=== PATIENT | female | born 1995 | race Caucasian/White ===

== ENCOUNTER 2024-04-08 15:46 | Emergency (ER) | payer BC, SELFPAY ==
[2024-04-08] VITALS (10 sets, daily range): BP systolic 116–119; BP diastolic 64; PULSE 72–88; RESP 24; TEMP 38.3–38.7; O2SAT 87–95; BMI 35.4
--- OUTSIDE RECORDS SUMMARY | 2024-04-08 15:49 | XMS_ITS | Encounter Summary ---
Author Organization [facility] Address [address] [address] Phone Care Team Providers Care Client Resolution Specialist Name Role Phone Bang Gibson MD Primary Care Provider [phone] Reason for Visit * Reason Onset Date Comments Referral 02/20/2024 [facility] Encounter Details Date Type Department Care Team ([facility] Contact Info) Description 02/20/2024 Telephone [facility] - [facility] [place] 2023 [place] [address] Nusrat Kaplan Referral ([facility]) Social History Tobacco Use Types Packs/Day Years Used Date Smoking Tobacco: Never Smokeless Tobacco: Never Alcohol Use Standard Drinks/Week Comments Yes 0 (1 standard drink = 0.6 oz pur e alcohol) Rare [facility] Utilities Answer Date Recorded In the past 12 months has [facility] [employer], gas, oil, or water eelusion threatened to shut off services in your home? No 08/19/2023 Humiliation, Afraid, Rape, and Kick questionnair e Answer Date Recorded Within the last year, have y ou been afraid of your partner or ex-partner? No 12/13/2021 Within the last year, have y ou been humiliated or emotionally abused in other ways by your partner or ex-partner? No Within the last year, have y ou been kicked, hit, slapped, or otherwise physically hurt by your partner or ex-partner? No 12/13/2021 Within the last year, have y ou been raped or forced to have any kind of sexual activity by your partner or ex-partner? No 12/13/2021 Social Connection and Isolation Panel [NHANES] A nswer Date Recorded In a typical week, how many times do you talk on the phone with family, friends, or neighbors? Twice a week 12/13/2021 How often do you get together with friends or re latives? Once a week 12/13/2021 How often do you attend spiritism or restorationist serv ices? Never 12/13/2021 Do you belong to any clubs o r organizations such as spiritism groups, unions, fraternal or athletic groups, or school groups? No 12/13/2021 How often do you attend meet ings of the clubs or organizations you belong to? Never 12/13/2021 Are you , , di vorced, , never , or living with a partner? 12/13/2021 AUDIT-C Answer Date Recorded Q1: How often do you have a drink containing alc ohol? Monthly or less 12/13/2021 Q2: How many drinks containi ng alcohol do you have on a typical day when you are drinking? 1 or 2 12/13/2021 Q3: How often do you have si x or more drinks on one occasion? Never 12/13/2021 Overall Financial Resource Strain (CARDIA) Answe r Date Recorded How hard is it for you to pa y for the very basics like food, housing, medical care, and heating? Not very hard 03/28/2023 PHQ-2 Answer Date Recorded PHQ-2 Total 0 02/17/2024 [facility] - Occupational Stress Questionnaire Answer Date Recorded Do you feel stress - tense, restless, nervous, or anxious, or unable to sleep at night because your mind is troubled all the time - these days? Very much 12/13/2021 Exercise Vital Sign Answer Date Recorde d On average, how many days pe r week do you engage in moderate to strenuous exercise (like a brisk walk)? 3 days 12/13/2021 On average, how many minutes do you engage in exercise at this level? 60 min 12/13/2021 Hunger Vital Sign Answer Date Recorded Within the past 12 months, y ou worried that your food would run out before you got the money to buy more. Never true 08/19/19 24 Within the past 12 months, t he food you bought just didn't last and you didn't have money to get more. Never true 08/19/2023 PRAPARE - Transportation Answer Date Re corded In the past 12 months, has l ack of transportation kept you from medical appointments or from getting medications? No 08/05 In the past 12 months, has l ack of transportation kept you from meetings, work, or from getting things needed for daily living? No 08/19/2023 Housing Stability Vital Sign Answer Lauro e Recorded In the last 12 months, was t here a time when you were not able to pay the mortgage or rent on time? Yes 08/19/2023 In the past 12 months, how m any times have you moved where you were living? 0 08/19/2023 At any time in the past 12 m onths, were you homeless or living in a jail (including now)? No 08/19/2023 EH IP Custom Utilities Answer Date Elijah rded Retired - How hard is it for you to pay for utilities like heat, water, and electricity? Not very hard 05/16/2023 EH IP Housing Domain Answer Date Record ed Retired - What is your livin g situation today? I have a steady place to live 05/16/2023 EH IP Custom Utilities ([employer]) Answer Date Recorded How hard is it for you to pa y for the very basics like food, housing, medical care, and heating? 4 03/28/2023 EH IP Custom IPV Answer Date Recorded Do you feel UNSAFE in any of your personal relationships with your family members or any other acquaintances? No 2022 Comments No Sex and Gender Information Value Date Recorded Sex Assigned at Not on file Legal Sex Female 12:25 PM CDT Gender Identity Not on file Sexual Orientation Not on file documented as of this encounter Functional Status * Patient's Vision Adequate to Safely Complete Daily Activities Answer Date of Assessment Author Yes 07/06/2022 11:45 PM CDT Ernesto Ramos, RN * Patient's Memory Adequate to Safely Complete Daily Activities Answer Date of Assessment Author Yes 07/06/2022 11:45 PM CDT Ernesto Ramos, RN documented as of this encounter Mental Status * Patient's Judgment Adequate to Safely Complete Daily Activities Answer Entry Date Author Yes 07/06/2022 11:45 PM CDT Ernesto Ramos RN documented in this encounter Miscellaneous Notes * Telephone Encounter - Shakeel Kaplanine Doug - 02/23/2024 3:21 PM CST Referral ID [id number] Future appointment on 04-03-24 w/Dr. Eren Bustillo ITAL CLINIC ASSISTANT * Telephone Encounter - Shakeel Kaplanine Doug - 02/20/2024 10:49 AM CST Referral received and faxed to [facility]. Faxed referral, demographics, OVS notes, financial summary, problem list and current medications. Patient will receive a call to schedule appointment from that facility once patient's chart information has been received. For questions, please have patient call [phone] to speak with scheduling office. Patient should be sure to contact their insurance company to verify benefit coverage for this visitprior to being seen for this referral. If there are questions or concerns, please contact the appropriate Referral Center; [facility]: [phone] [place]: [phone] [place]: [phone] Thank you! ITAL CLINIC ASSISTANT documented in this encounter Plan of Treatment Upcoming Encounters Date Type Department Care Team (Late st Contact Info) Description 04/11/2024 4:30 PM HOSPITAL CLINIC ASSISTANT Appointment [facility] Radiology [address] [id number] Licha Acuna RN, [address] [place], [place] [address] documented as of this encounter Visit Diagnoses Not on filedocumented in this encounter Care Teams Client Resolution Specialist Relationship Specialty [place] [address] [facility] [address] [place] [address] PCP - General Family Medicine 03/28/23 documented as of this encounter
--- OUTSIDE RECORDS SUMMARY | 2024-04-08 15:49 | XMS_ITS | Encounter Summary ---
Author Organization [facility] Address [address] [address] Phone Care Team Providers Care Mortarman Name Role Phone Bang Gibson MD Primary Care Provider [phone] Reason for Visit * Reason Comments Hearing Loss Signs Of Infection * Office Visit (Routine) - New Request Specialty Diagnoses / Procedures Referred By Dariana jefferson Referred To Contact Audiology Diagnoses Non-recurrent acute suppurative otitis media of right ear without spontaneous rupture [place] [address] [address] Phone: tel: fax: Referral ID Status Reason Start Date Expiration Date V isits Requested Visits Authorized [id number] New Request 02/24/2024 02/23/2025 1 1 Encounter Details Date Type Department Care Team ([facility] Contact Info) Description 03/21/2024 8:00 AM DIRECTOR NICU Office Visit [facility] 2023 [place], [place] [id number] Komal Liriano, AuD [address] [id number] Conductive hearing loss of right ear with unrestricted hearing of left ear (Primary Dx) Social History Tobacco Use Types Packs/Day Years Used Date Smoking Tobacco: Never Smokeless Tobacco: Never Alcohol Use Standard Drinks/Week Comments Yes 0 (1 standard drink = 0.6 oz pur e alcohol) Rare [facility] Utilities Answer Date Recorded In the past 12 months has th e electric, gas, oil, or water company threatened to shut off services in your [...] week 12/13/2021 How often do you attend zoroastrian or spiritism serv ices? Never 12/13/2021 Do you belong to any clubs o r organizations such as zoroastrian groups, unions, fraternal or athletic groups, or [...] Answer Date Recorded PHQ-2 Total 0 02/17/2024 [facility]ational Stress Questionnaire Answer Date Recorded [...] were you homeless or living in a care home (including now)? No 08/19/2023 EH IP Custom [...] housing, medical care, and heating? 4 03/28/2023 IP Custom IPV Answer Date Recorded Do [...] 07/06/2022 11:45 PM CDT Ernesto Ramos RN * Patient's Memory Adequate to Safely Complete Daily Activities Answer Date of Assessment Author Yes 07/06/2022 11:45 PM CDT Ernesto Ramos RN documented as of this encounter Mental Status * Patient's Judgment Adequate to Safely Complete Daily Activities Answer Entry Date Author Yes 07/06/2022 11:45 PM CDT Ernesto Ramos RN documented in this encounter Progress Notes * Komal Liriano, Александр - 03/21/2024 8:00 AM CST Gerri Hayward is a(n) 28 year old referred by [facility]. PCP: Bang Gibson MD ENT appt 03/21/2024 Chief Complaint Patient presents with Hearing Loss Signs Of Infection Medical History The purpose of today's appointment was to evaluate Gerri Hayward's current hearing sensitivity. Gerri Hayward reports the following: Pt states having a right sided ear infection for about 1+ mos now. Pt states off/on pain and drainage. Pt states the drainage has been red at times. No dizziness or ringing. Pt states right ear is quieter that the left ear now. Pt states no infection hx. Audiologic Results: Otoscopy revealed both external auditory canals reveal generally clear canal(s) with visable TM(s). Right eardrum was pink and tender looking. Left eardrum was clear and transparent. Tympanometry Type A which is consistent with normal middle ear pressure, volume and admittance in both ears. Today's hearing evaluation was conducted using conventional audiometry(air/bone/speech threshold/word recognition) under insert earphones with good reliability. Hearing threshold levels revealed a slight CHL rising to normal in the right ear and normal hearing in the left ear. Speech hospital receptionist thresholds(SRT's) were obtained at 35dB in the right ear and 15dB in the left ear. When speech was presented at a comfortable level(word recognition), speech was understandable 100% of the time in the right ear and 100% of the time in the left ear. Impressions: Gerri Hayward has conductive hearing loss in the right ear and normal hearing in the left ear. Results from today's hearing test and areas where pt would be struggling was discussed. Hearing Aid Consultation: No Recommendations: Given today's results it is recommended that Gerri Hayward see Otolaryngology for further medical evaluation. ENT appointment has been previously scheduled. Pt was informed if any changes with hearing acuity or ear issues are noted to let us know and a repeat audiogram will be conducted. The results and recommendations of today's testing were discussed. It was a pleasure meeting and working with Gerri Hayward today. Thank you for allowing us to participate in this patient's care. Time: 25 minutes. Pt given a copy of Audiogram: Yes CTOR NICU documented in this encounter Plan of Treatment Upcoming Encounters Date Type Department Care Team (Late st Contact Info) Description 04/11/2024 4:30 PM DIRECTOR NICU Appointment [facility] Radiology [address] [id number] Licha Acuna RN, ACTUARIAL SCIENCE PROFESSOR [address] [place], [place] [address] documented as of this encounter Procedures Procedure Name Priority Date/Time Associated Diagnosis Comments TYMPANOMETRY Routine 03/21/2024 12:00 AM DIRECTOR NICU Conductive hearing loss of right ear with unrestricted hearing of left ear COMPREHENSIVE HEARING TEST Routine 03/21/2024 12:00 AM DIRECTOR NICU Conductive hearing loss of right ear with unrestricted hearing of left ear documented in this encounter Results * COMPREHENSIVE HEARING TEST (03/21/2024 12:00 AM DIRECTOR NICU) 03/21/2024 [place] [facility] PROCEDURES Final Re sult * TYMPANOMETRY (03/21/2024 12:00 AM DIRECTOR NICU) 03/21/2024 [place] [facility] EC PROCEDURES Final Re sult documented in this encounter Visit Diagnoses Diagnosis Conductive hearing loss of right ear with unrestricted hearing of left ear- Primary documented in this encounter Care Teams Mortarman Relationship Specialty [place] [address] [address] PCP - General Family Medicine 03/28/23 documented as of this encounter
--- OUTSIDE RECORDS SUMMARY | 2024-04-08 15:49 | XMS_ITS | Encounter Summary ---
Author Organization [facility] Address [address] [address] Phone Care Team Providers Care Electric Needle Specialist Name Role Phone Bang Gibson MD Primary Care Provider [phone] Encounter Details Date Type Department Care Team (Latest Contact Info) Description 03/21/2024 Travel Social History Tobacco Use Types Packs/Day Years Used Date Smoking Tobacco: Never Smokeless Tobacco: Never Alcohol Use Standard Drinks/Week Comments Yes 0 (1 standard drink = 0.6 oz pur e alcohol) Rare [facility] Utilities Answer Date Recorded In the past 12 months has e electric, gas, oil, or water company [...] Answer Date Recorded PHQ-2 Total 0 02/17/2024 [facility] Occupat ional Health - Occupational Stress [...] any time in the past 12 m ont, were you homeless or living in a long-term (including now)? No 08/19/2023 EH IP Custom [...] Date Author Yes 07/06/2022 11:45 PM CDT Ernetso Ramos, RN documented in this encounter Plan of Treatment Upcoming Encounters Date Type Department Care Team (Late st Contact Info) Description 04/11/2024 4:30 PM PRECISION LENS GENERATOR Appointment [facility] Radiology [place] [address] [place] [id number] Licha Acuna, RN, [address] [place] [address] documented as of this encounter Visit Diagnoses Not on filedocumented in this encounter Care Teams Electric Needle Specialist Relationship Specialty [place] [address] [address] PCP - General Family Medicine 03/28/23 documented as of this encounter
--- OUTSIDE RECORDS SUMMARY | 2024-04-08 15:49 | XMS_ITS | Clinical Summary ---
Author Organization [facility] Address [address] [place] [address]. [place] [address] Care Team Providers Care Second Rigger Name Role Phone No Ref-Primary, Physician Primary Care Provider Allergies No known active allergies Medications CITALOPRAM HYDROBROMIDE PO Acti ve trimethoprim-polymy linda b (POLYTRIM) 88407-3.1 UNIT/ML-% ophthalmic solutionIndications :Acute bacterial conjunctivitis of left eye Apply 1 drop to affected eye(s) 4 times daily for 7 days. 5 mL Active Immunizations Name Administration Dates Next Due TDAP Vaccine (Adacel) 11/24/2017 Family History Medical History Relation Comments Coronary Artery Disease Early Onset Father Diabetes Maternal Grandfather Hypertension Maternal Grandfather Relation Status Comments Father Maternal Grandfather Social History Tobacco Use Types Packs/Day Years Used Date Smoking Tobacco: Never Smokeless Tobacco: Never Tobacco Cessation:Counseling Given: Not Answered Adolescent Education Answer Date Record ed Getting School Help Needed Not on file 11/26 Comments No Sex and Gender Information Value Date Recorded Sex Assigned at Not on file Legal Sex Female 4:11 PM CDT Gender Identity Not on file Sexual Orientation Not on file Last Filed Vital Signs Vital Sign Reading Time Taken Comments Blood Pressure 135/84 09/16/2022 4:53 PM CDT Pulse 100 09/16/2022 4:53 PM CDT Temperature 37.1 C (98.8 F) 09/16/2022 4:53 PM CDT Respiratory Rate - - Oxygen Saturation 100% 09/16/2022 4:53 PM CDT Inhaled Oxygen Concentration - - Weight 95.3 kg (210 lb) 09/16/2022 4:53 PM CDT Height - - Body Mass Index - - Plan of Treatment Health Maintenance Due Date Last Done Comments ADVANCE CARE PLANNING 1995 ANNUAL REVIEW OF HM ORDERS 1995 YEARLY PREVENTIVE VISIT 12/13/1998 HIV SCREENING 12/13/2010 HEPATITIS C SCREENING 12/13/2013 PAP 12/13/2016 COVID-19 Vaccine ( season) 2023 06/19/2020, 05/21/2020 INFLUENZA VACCINE (#1) 2023 PHQ-2 (once per calendar year) 2024 DTAP/TDAP/TD IMMUNIZATION (7 - Td or Tdap) 11/25/2027 11/24/2017, 06/27/2008, 11/21/2001, Additional history exists RSV VACCINE (1 - 1-dose 75+ series) 12/13/2070 HEPATITIS B IMMUNIZATION Completed 997, 04/16/1996, 02/13/1996 HPV IMMUNIZATION Aged Out No longer e ligible based on patient's age to complete this topic MENINGITIS IMMUNIZATION Aged Out No l onger eligible based on patient's age to complete this topic Pneumococcal Vaccine: Pediatrics (0 to 5 Years) and At-Risk Patients (6 to 49 Years) Aged Out No longer eligible based on patient's age to complete this topic RSV MONOCLONAL ANTIBODY Aged Out No l onger eligible based on patient's age to complete this topic Insurance [employer] Care Teams Second Rigger Relationship Specialty Start Date End Date No Ref-Primary, Physician PCP - General 11/24/17
--- OUTSIDE RECORDS SUMMARY | 2024-04-08 15:49 | XMS_ITS | Referral Summary ---
Author Organization [facility] Address [address] [place] [address]. [place] [address] Care Team Providers Care Health Promoter Name Role Phone No Ref-Primary, Physician Primary Care Provider Allergies No known active allergies Medications CITALOPRAM HYDROBROMIDE PO Acti ve trimethoprim-polymy linda b (POLYTRIM) 78461-6.1 UNIT/ML-% ophthalmic solutionIndications :Acute bacterial conjunctivitis of left eye Apply 1 drop to affected eye(s) 4 times daily for 7 days. 5 mL Active Immunizations Name Administration Dates Next Due TDAP Vaccine (Adacel) 11/24/2017 Social History Tobacco Use Types Packs/Day Years [...] Mass Index - - Plan of Treatment Not on file Insurance [employer] Care Teams Health Promoter Relationship Specialty Start Date End Date No Ref-Primary, Physician PCP - General 11/24/17
--- OUTSIDE RECORDS SUMMARY | 2024-04-08 15:49 | XMS_ITS | Clinical Summary ---
Author Organization [facility] Address [address] [address] Phone Care Team Providers Care Boat Camp Operator Name Role Phone Bang Gibson MD Primary Care Provider [phone] Allergies Active Allergy Reactions Criticality Noted Date Comments Bupropion Unknown Medium 04/02/2020 [place] numb and increased suicide ideations Grapefruit Concentrate Anaphylaxis High 2021 Medications drospirenone-eth inyl estradiol (Erin) 3-0.02 MG oral tablet Take 1 Tablet by mouth one time a day. Patient will take continuously, skipping placebo pills. Will need 4 pill packs for a 3 month supply. 112 Tablet 4 2 Active cyclobenzaprine (Flexeril) 10 MG tablet TAKE 1 TABLET BY MOUTH THREE TIMES A DAY NEEDEDFOR MUSCLE SPASMS. 90 Tablet 2 4 Active propranolol (Inderal) 10 MG tabletIndication s:Anxiety Take 2 Tablets by mouth three times a day. 360 Tablet 1 05/24/2023 10:31 AM CDT 4 Active propranolol LA (Inderal LA) 60 MG 24 hour capsuleIndicatio ns:Anxiety Take 1 Capsule by mouth one time a day. Do not crush. 90 Capsule 2 4 Active gabapentin (Neurontin) 300 MG capsuleIndicatio ns:Chronic neck pain Take 1 Capsule by mouth three times a day. 180 Capsule 2 4 Active citalopram (CeleXA) 40 MG tabletIndication s:Anxiety Take 1 Tablet by mouth at bedtime. 90 Tablet 1 4 Active ciprofloxacin-de xAMETHasone 0.3-0.1 % otic suspensionIndica tions:Non-recurr ent acute suppurative otitis media of right ear without spontaneous rupture of tympanic membrane Place 4 Drops into the right ear two times a day. Shake suspension well immediately before using. 7.5 mL 4 Active Active Problems Patient Care Coordination No te Formatting of this note migh t be different from the original. Cervical cancer screening: Pap NILM, HPV not done, cytology only due in 3 years (12/2024). Problem Noted Date Diagnosed Date Chronic neck pain with history of cervical spina l surgery 11/15/2022 Menorrhagia with irregular cycle 2021 Chronic neck pain 07/08/2020 Overview (2021): Every since her procedure in 2005. Fairly constant, dull ache. Sometimes has sharp pains down her UE. Even things such as a yawn can set it off. Unsure a pattern to her flare ups. She will utilize a neck brace when flare ups happen. She has Flexeril and this will sometimes help. She will often rest until it improves. Assessment & Plan (2021 8:17 AM CDT): Continue with current management. Refilled Flexeril. Discussed future possible management such as OMT, physical therapy and/or changing muscle relaxer. Cervical radiculopathy 07/08/2020 Overview (2021): She will get this occasionally when she has flare ups. Assessment & Plan (2021 8:18 AM CDT): Currently not experiencing a flare up. Major depressive disorder, recurrent, mild 10/03 Overview (2021): Dated back to elementary school. Started receiving treatment around 18 years old. Has problems with sadness, anhedonia, lack of motivation. History of self injurious behavior, cutting and burning. No suicidal attempts but did have suicidal ideations without a plan. No current thoughts of suicide. Celexa seems to help with the self harm thoughts. Her other symptoms seem controlled when initially on the med but then needs to be increased to help symptoms. Currently struggling with things in her day to day routine. Does not currently see a therapist but is open to one. Previously had been on Wellbutrin, seemed to increase SI. She utilizes painting and drawing and likes to be around animals. 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 Assessment & Plan (2021 8:32 AM CDT): Increasing Celexa to 40 mg daily and referring to psychology for therapy services. Anxiety 10/02/2018 Overview (2021): Dated back to elementary school. Started receiving treatment around 18 years old. This will effect her ability to go out and complete tasks or hang out with friends. Tends to back out because she starts to panic. Assessment & Plan (2021 8:32 AM CDT): Increasing Celexa to 40 mg daily and referring to psychology for therapy services. Dysmenorrhea 10/02/2018 Overview (2021): She reports menarche at 10 to 11 years old. Since then her periods have been irregular. She states that the irregularity can be every 2 weeks to every 3 months. The cycle usually lasts 1 to 2 days but can extend up to 2 weeks of bleeding. She reports heavy bleeding and experiences clots. She will typically use super plus tampons and can use them as frequently as every 1-2 hours during her cycles. She also reports quite a bit of pain with them that affect her daily life. She was put on OCPs at one time but she reports this increase her depression and she discontinued them. She sometimes uses Excedrin Migraine with little effect. Her last menstrual period was 12/12/2021 and lasted for a day with heavy flow. Currently sexually active with a female partner. Assessment & Plan (2021 8:46 AM CDT): Lab work and possible ultrasound for further work-up. Trial ibuprofen 800 mg up to 3 times a day during her menstrual cycle. Follow-up in 2 weeks to go over labs. Considering possible referral to gynecology. 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 S/p removal and laminectomy 2006 Encounters Date Type Department Care Team Description 03/21/2024 8:00 AM LINE HAUL TRUCK DRIVER Office Visit [facility] [address] [place] [address] Komal Liriano AuD Conductive hearing loss of right ear with unrestricted hearing of left ear (Primary Dx) 03/21/2024 Travel 02/20/2024 Telephone [facility] PATIENT CARE CONTACT CENTER BREWSTER [address] [place], [place] [id number] Nusrat Kaplan Referral ([facility]NT) 02/17/2024 1:30 PM LINE HAUL TRUCK DRIVER Office Visit [facility] [address] [place] [address] Bang Gibson MD Non-recurrent acute suppurative otitis media of right ear without spontaneous rupture of tympanic membrane (Primary Dx) 02/17/2024 Travel from Last 3 Months Immunizations Name Administration Dates Next Due COVID-19 mRNA Vaccine (Moderna - 18+ Yrs) 2020,05/21/2020 DTP/HIB (Tetramune) 04/16/1996,02/13/1996 DTaP <7 years 04/11/1997,06/22/1996 Hepatitis B, Pediatric/adolescent 09/14/1996,12/1996,02/13/1996 IPV 11/21/2001 MMR 05/22/2008,11/21/2001,1996 OPV (Historic Use Only) 06/22/1996,04/16/1996, Rabies IM Fibroblast Culture (Rabavert) 11/11/19,10/26/2016,10/18/2016 TD >7yrs With Preservative 11/21/2001 Tdap (7 years and older) 11/24/2017,06/27/2008 Varicella (Varivax) 05/22/2008,08/14/1997 Social History Tobacco Use Types Packs/Day Years Used Date Smoking Tobacco: Never Smokeless Tobacco: Never Tobacco Cessation:Counseling Given: Not Answered Alcohol Use Standard Drinks/Week Comments Yes 0 (1 standard drink = 0.6 oz pur e alcohol) Rare [facility] Utilities Answer Date Recorded In the past 12 months has e [employer], gas, oil, or water [employer] threatened to shut off services in your [...] week 12/13/2021 How often do you attend sikhism or mu-ism serv ices? Never 12/13/2021 Do you belong to any clubs o r organizations such as sikhism groups, unions, fraternal or athletic groups, or [...] Answer Date Recorded PHQ-2 Total 0 02/17/2024 [employer] of Occupat ional Health - Occupational Stress [...] any time in the past 12 m [facility], were you homeless or living in a usp (including now)? No 08/19/2023 IP [employer] Utilities Answer Date Elijah rded Retired - How hard is it for you to pay for utilities like heat, water, and electricity? Not very hard 05/16/2023 IP Housing Domain Answer Date Record ed Retired - What is your samuel g situation today? I have a steady place to live 05/16/2023 IP Custom Utilities (Leg[employer]) Answer Date Recorded [...] on file Sexual Orientation Not on file Obstetrics History Para Term AB IAB SAB Ectopic Molar Multiple Living Live Births 0 0 0 0 0 0 0 0 0 0 0 0 Last Filed Vital Signs Vital Sign Reading Time Taken Comments Blood Pressure 123/78 02/17/2024 1:11 PM LINE HAUL TRUCK DRIVER Pulse 81 02/17/2024 1:11 PM LINE HAUL TRUCK DRIVER Temperature 36.8 C (98.2 F) 02/17/2024 1:11 PM LINE HAUL TRUCK DRIVER Respiratory Rate 14 08/19/2023 11:4 6 AM CDT Oxygen Saturation 99% 02/17/2024 1:11 PM LINE HAUL TRUCK DRIVER Inhaled Oxygen Concentration - - Weight 102.3 kg (225 lb 8.5 oz) 024 11:46 AM CDT Height 175.3 cm (5' 9) 08/19/2023 11:4 6 AM CDT Body Mass Index 33.31 08/19/2023 11:46 AM CDT Plan of Treatment Upcoming Encounters Date Type Department Care Team (Late st Contact Info) Description 04/11/2024 4:30 PM LINE HAUL TRUCK DRIVER [facility]oint[facility] [address] [address] [address] Licha Acuna, RN, THERMO PROCESSOR [facility] [address] [facility] [address] [place] [id number] Health Maintenance Due Date Last Done Comments COVID-19 Vaccine ( season) 2023 06/19/2020, 05/21/2020 Influenza Vaccine Seasonal (Standing Order) (#1) 2023 Cervical CA Screening (Pap) 01/06/2025 01/06/2022 TETANUS (Standing Order) 11/25/2027 018, 06/27/2008, 11/21/2001, Additional history exists Hepatitis B Vaccine (Standing Order) Completed 09/14/1996, 04/16/1996, 02/13/1996 PERTUSSIS (Standing Order) Completed 11/24, 06/27/2008, 04/11/1997, Additional history exists HPV Vaccine (Standing Order) Aged Out No longer eligible based on patient's age to complete this topic Pneumococcal/PCV20 Vaccine: Pediatrics (2-5 yrs) and At-Risk Patients (6-49 yrs) (Standing Order) Aged Out No longer eligible based on patient's age to complete this topic Procedures Procedure Name Priority Date/Time Associated Diagnosis Comments COMPREHENSIVE HEARING TEST Routine 03/21/2024 12:00 AM LINE HAUL TRUCK DRIVER Conductive hearing loss of right ear with unrestricted hearing of left ear TYMPANOMETRY Routine 03/21/2024 12:00 AM LINE HAUL TRUCK DRIVER Conductive hearing loss of right ear with unrestricted hearing of left ear PAP, LIQUID BASED Routine 01/06/2022 8:4 9 AM CDT Screening for malignant neoplasm of cervix from Last 3 Months or Most Recently Relevant to Health Maintenance Results * TYMPANOMETRY (03/21/2024 12:00 AM LINE HAUL TRUCK DRIVER) 03/21/2024 Komal Liriano AuD EC PROCEDURES Final Re sult * COMPREHENSIVE HEARING TEST (03/21/2024 12:00 AM LINE HAUL TRUCK DRIVER) 03/21/2024 Komal Liriano AuD EC PROCEDURES Final Re sult * PAP, LIQUID BASED (01/06/2022 8:49 AM CDT) Case Report Gynecologic Cytology Report Case: [id number] Authorizing Provider: Tabby Scott DO Collected: 01/06/2022 0849 Ordering Location: [facility] Received: 01/06/2022 0903 Obstetrics/Gyneco logy First Screen: Ernesto Hsu Specimen: LIQUID-BASED PAP, Cervix 01/07/2022 8:27 AM CDT [facility] Gynecologic Cytology Interpretation , SurePath Collection Negative for Intraepithelial Lesion or Malignancy. 01/07/2022 8:27 AM CDT [facility] Other Findings Marked inflammation present. 01/07/2022 8:27 AM CDT [facility] Specimen Adequacy Satisfactory for evaluation, endocervical/trans formation zone component is present. 01/07/2022 8:27 AM CDT [facility] Pap Disclaimer Note: The Pap test is a screening procedure and is not, by itself, diagnostic. False negatives and positives do occur. Correlation with clinical findings, history and a program of regular examinations including Pap tests is warranted to help detect cancers and precursor lesions of the female genital tract. 01/07/2022 8:27 AM CDT [facility] [place] VAGINAL CERVIX / Unknown Non-blood collection / Unknown 01/06/2022 8:49 AM CDT 01/06/2022 9:03 AM CDT Tabby Scott DO EC PATHOLOGY ORDERABLES F inal Result [facility] [address] from Last 3 Months or Most Recently Relevant to Health Maintenance [facility] Care Teams Boat Camp Operator Relationship Specialty [place] [address] [address] PCP - General Family Medicine 03/28/23
--- OUTSIDE RECORDS SUMMARY | 2024-04-08 15:49 | XMS_ITS | Clinical Summary ---
Author Organization [facility] Address [place], [place] [address] Care Team Providers Care Diagnostic Cardiac Sonographer Name Role Phone Bang Gibson Primary Care Provider Unavaila ble Allergies Active Allergy Reactions Criticality Noted Date Comments Grapefruit Anaphylaxis High 2021 Bupropion Other - Describe In Comment Field Medium 04/02/2020 [place] numb and increased suicide ideations Medications cyclobenzaprine (FLEXERIL) 10 mg tabletIndications :Chronic neck pain,Cervical radiculopathy Take 1 Tablet (10 mg) by mouth 3 times daily if needed for Muscle Spasm. 30 tablet. 1 2 Active gabapentin (NEURONTIN) 300 mg capsule Take 300 mg by mouth three times daily. Active citalopram (CELEXA) 40 mg tablet Take 1 Tablet by mouth at bedtime. 4 Active propranolol ER (INDERAL LA) 60 mg Cs24 Sustained-Release capsule Take 60 mg by mouth once daily. 4 Active methylPREDNISolon e (MEDROL DOSEPAK) 4 mg tabletIndications :Neuritis Take by mouth as instructed per packaging. 21 Tablet 4 Active lidocaine-priloca ine 2.5%-2.5% creamIndications: Neuritis Apply 5 grams to affected area TID PRN 30 g 4 Active diclofenac topical (VOLTAREN) 1 % gelIndications:Ne uritis Apply 4 g topically to affected area(s) four times daily. 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 Overview (12/21/2006): on C-2 s/p laminectomy 2006 Encounters Date Type Department Care Team Description 02/16/2024 9:20 AM GLOBAL SALES EXECUTIVE Office Visit [facility] [address] [place] [id number] Calvin Howard MD Follow Up (procedure from 01/26 cervical RFA (B) C3.C4,C5 discuss pain.) 02/16/2024 Travel 01/27/2024 2:37 PM GLOBAL SALES EXECUTIVE Anesthesia Event [facility] [address] [place] [address] Maryse Harry CRNA 01/27/2024 2:30 PM GLOBAL SALES EXECUTIVE - 01/27/2024 3:30 PM GLOBAL SALES EXECUTIVE Surgery [facility] [address] [place] [address] Calvin Howard MD Cervical medial branch RFA bilateral C3, C4, C5, wih MAC Anesth, with decadron 10 mg 01/27/2024 1:34 PM GLOBAL SALES EXECUTIVE - 01/27/2024 11:59 PM GLOBAL SALES EXECUTIVE Hospital Encounter [facility] [address], [place] [address] Calvin Howard MD Arthropathy of cervical facet joint (Primary Dx) Discharge Disposition: Home Self Care 01/27/2024 Travel 01/24/2024 Travel from Last 3 Months Immunizations Name Administration Dates Next Due COVID-19 vaccine (Moderna 10 0mcg/0.5mL) PF, MDV 06/19/2020,05/21/2020 DTP-HIB 04/16/1996,02/13/1996 DTaP 04/11/1997,06/22/1996 HIB PRP-T (ActHIB,Hiberix) 08/14/1998,06/22/1996 Hepatitis B (Peds) 09/14/1996,04/16/1996, 996 Inactivated Polio Vaccine 11/21/2001 MMR 05/22/2008,11/21/2001,1996 Oral Polio Vaccine 06/22/1996,04/16/1996, 996 Rabavert 11/10/2016,10/26/2016,10/18/2016 Td (Age >=7 Years) 11/21/2001 Tdap 11/24/2017,06/27/2008 Varicella Vaccine 05/22/2008,08/14/1997 Family History Medical History Relation Name Comments No Known Problems Brother 1/2 bro Heart attack Father Other Mother history of drug abuse No Known Problems Sister 1/2 sister Relation Name Status Comments Brother Father Mother Sister Social History Tobacco Use Types Packs/Day Years Used Date Smoking Tobacco: Passive Smo ke Exposure - Never Smoker Smokeless Tobacco: Never Tobacco Cessation:Counseling Given: Yes Comments:father smokes in the home Alcohol Use Standard Drinks/Week Comments No 0 (1 standard drink = 0.6 oz pur e alcohol) PHQ-2 Answer Date Recorded PHQ-2 TOTAL SCORE 1 08/18/2023 Social Connections Answer Date Recorded Frequency of Communication with Friends and Fami ly Not on file 02/28/2021 Financial Resource Strain Answer Date R ecorded Difficulty of Paying Living Expenses Not on file 02/28/2021 Difficulty of Paying Living Expenses Not on file 02/28/2021 Comments No Sex and Gender Information Value Date Recorded Sex Assigned at Not on file Legal Sex Female 5:22 AM GLOBAL SALES EXECUTIVE Gender Identity Not on file Sexual Orientation Not on file 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 on file Not on file Not on file Obstetrics History Para Term AB IAB SAB Ectopic Multiple Livin g Live Births 0 0 0 0 0 0 0 0 0 0 Last Filed Vital Signs Vital Sign Reading Time Taken Comments Blood Pressure 110/68 02/16/2024 9:34 AM GLOBAL SALES EXECUTIVE Pulse 66 02/16/2024 9:34 AM GLOBAL SALES EXECUTIVE Temperature 36.7 C (98.1 F) 02/16/2024 9:34 AM GLOBAL SALES EXECUTIVE Respiratory Rate 14 02/16/2024 9:34 AM GLOBAL SALES EXECUTIVE Oxygen Saturation 98% 02/16/2024 9:34 AM GLOBAL SALES EXECUTIVE Inhaled Oxygen Concentration - - Weight 115.7 kg (255 lb) 02/16/2024 9:34 AM GLOBAL SALES EXECUTIVE Height 175.3 cm (5' 9) 02/16/2024 9:34 AM GLOBAL SALES EXECUTIVE Body Mass Index 37.66 02/16/2024 9:34 AM GLOBAL SALES EXECUTIVE Plan of Treatment Health Maintenance Due Date Last Done Comments HIV for age 15-65 12/13/2010 Hepatitis C screening for age 18-79 12/13/2013 Pap test for age 21-65 12/13/2016 COVID-19 vaccine series ( season) 2023 06/19/2020, 05/21/2020 Influenza for age 9-49 11/06/2023 Depression screening for age 12+ 08/17/2024 08/18/2023, 05/27/2021, 04/02/2020, Additional history exists BMI (ht and wt on same day) for age 18+ 02/15/2025 02/16/2024, 11/18/2023, 10/25/2023, Additional history exists Tetanus booster 11/25/2027 11/24/2017, 06/06, 11/21/2001 Tdap Completed 11/24/2017, 06/27/2008 Pneumococcal series for age 6-49 Aged Out No longer eligible based on patient's age to complete this topic Procedures Procedure Name Priority Date/Time Associated Diagnosis Comments XR C-ARM EQUAL OR LESS 1 HR Routine 01/27/2024 3:19 PM GLOBAL SALES EXECUTIVE Arthropathy of cervical facet joint RADIOFREQUENCY MEDIAL BRANCH NEUROTOMY 01/27/2024 2:31 PM GLOBAL SALES EXECUTIVE Facet arthropathy, cervical Case Notes Block A, 60 min (DL). 10 cm RFA needles from Last 3 Months Results * XR C-ARM EQUAL OR LESS 1 HR (01/27/2024 3:19 PM GLOBAL SALES EXECUTIVE) Narrative Silent, Sched - 01/27/2024 3:20 PM GLOBAL SALES EXECUTIVE The result for this exam is either scanned and attached to this order or are included in the ordering provider's NOTES from the patient's Office Visit or Surgical procedure from this date. us Calvin Howard MD FLUOROSCOPY Final Resul t from Last 3 Months Insurance [facility] Advance Directives * Full Code (Latest Code Status on File) Date Activated Date Inactivated Comments 01/27/2024 1:55 PM 01/28/2024 2:32 AM Question Answer Comments Code Status Discussion: Unable to Assess Preferences, Provider to review later * Full Code Date Activated Date Inactivated Comments 12/23/2023 6:25 AM 12/24/2023 2:26 AM Question Answer Comments Code Status Discussion: Unable to Assess Preferences, Provider to review later * Full Code Date Activated Date Inactivated Comments 11/11/2023 8:09 AM 11/12/2023 4:23 AM Question Answer Comments Code Status Discussion: Unable to Assess Preferences, Provider to review later * Full Code Date Activated Date Inactivated Comments 09/30/2023 7:51 AM 10/01/2023 2:27 AM Question Answer Comments Code Status Discussion: Unable to Assess Preferences, Provider to review later * Full Code Date Activated Date Inactivated Comments 07/27/2023 6:54 AM 07/28/2023 2:29 AM Question Answer Comments Code Status Discussion: Reviewed Preferences Care Teams Diagnostic Cardiac Sonographer Relationship Specialty Start Date End Date Bang Gibson PCP - General 05/23/23
--- OUTSIDE RECORDS SUMMARY | 2024-04-08 15:49 | XMS_ITS | Continuity of Care Document ---
Author Organization [facility] Address [address] [place] [address] Phone Care Team Providers Care Water Valve Mechanic Name Role Phone Dennis Marsh MD Unavailable Unavailable Allergies, Adverse Reactions, Alerts Substance Reaction Status Criticality No Known Allergies Active No Inform ation Medications Medication Instructions Dosage Effective Dates (start - stop) Status Comments GABAPENTIN (unknown strength) Not Available - Active PROPRANOLOL HCL (unknown strength) Not Available - Active CYCLOBENZAPRINE HCL (unknown strength) Not Available - Active CITALOPRAM HBR (unknown strength) Not Available - Active Procedures Procedure Date Office/Outpatient Visit,[facility] 2023 Advance Directives Directive Yes / No Effective Date File Name No Information Encounters Encounter Description Practice Location Reason(s) For Visit Diagnoses Date Provider Providers Copied on Encounter Office/Outpati ent Visit,[facility], [place] [facility], [address], [facility] [place], [id number], [place] tel:[phone] [facility] Unspecified kyphosis, cervical regionOther cervical disc degeneration, high cervical region Maximo Collins. [facility], [address], [address], [facility] [place], [id number], [place]. tel:[phone] Referring Provider: Scott Moreno, [facility] [address] [place], [address]. tel:[phone] Family History Family Member Type Diagnosis Age At Onset Sister Problem (finding) Suicide Sister Problem (finding) Depression Sister Problem (finding) Anesthesia reaction Sister Problem (finding) Blood disorder Sister Problem (finding) Scoliosis Father Problem (finding) Hypertension Brother Problem (finding) Suicide Payers Payer name Insurance type Covered libertarian ID Mary Ellen sousa(s) BC[employer] [place] Blue [place] [id number] Social History Type Description Quantity Date Captured Comments Alcohol Use Details No Caffeine Use Details Unknown Tobacco Use Status No Information Smoking Status Never smoker Non-Smoking Tobacco Use Details : No Details Available : No Details Available Sex Female Vital Signs Date / Time: Height Weight BMI Pulse Rate Blood Pressure Temperature Respiratory Rate Body Surface Area Head Circumference Head Circ. Percentile Wt./Onur. Percentile BMI percentile Pulse Ox Inhaled Ox 9:13 AM 69.50 in 108.318 kg (238.80 lbs) 34.7 6 kg/m eter (2) Chief Complaint And Reason For Visit No Information Reason For Referral Reason For Referral No Information History Of Present Illness Encounter Date Complaint History Of Prese nt Illness No Information Functional Status Date Functional Assessmen t No Information Instructions Date Instruction Additional Infor mation No Information Assessments Type Assessment Date No Information Patient Care Teams Name Effective Dates (start - stop) Status Members No Information
--- NOTE | 2024-04-08 16:24 | ED_ITS ---
HPI - General Adult General Date Seen: 04/08/24 Chief complaint: Cough Stated complaint: Cough, vomiting, body aches Time Seen by Provider: 04/08/24 15:50 History of Present Illness HPI narrative: Patient is a 28-year-old here for evaluation of cough, body aches, fever for 4 days. No history of asthma but she says she grew up with a smoker and so sometimes she feels like she gets wheezy. She does not smoke. She has not had vomiting or diarrhea. No chest pain. Has had shortness of breath. Related Data Previous Rx's ?Medication ?Instructions ?Recorded albuterol sulfate 90 mcg/actuation 2 puff inhalation 6XD PRN 04/08/24 aerosol inhaler shortness of breath or wheezing #6.7 grams prednisone 20 mg tablet 20 mg PO BID #10 tabs 04/08/24 Allergies Allergy/AdvReac Type Severity Reaction Status Date / Time grapefruit Allergy Verified 04/08/24 15:57 Review of Systems Status of ROS: Reports: 10 or more systems reviewed and unremarkable except as noted in History and below [facility] Social History Smoking Status: Never smoker Second hand tobacco smoke exposure: Yes How often do you have a drink containing alcohol: never AUDIT-C Alcohol total score: 0 Non-prescribed substance use: denies use Exam Narrative: Exam Narrative: Vital signs reviewed In general, alert, nontoxic Head: Normocephalic, atraumatic. Eyes: Sclera clear. Pupils equal and reactive. ENT: Mucous membranes moist. Throat is normal. Neck: Supple without adenopathy. Heart: Regular rate and rhythm without murmur. Lungs: Breath sounds are decreased, occasional crackles and wheezes on the left. No increased work of breathing. Abdomen: Soft, nontender to palpation. Extremities: Well perfused, pulses intact. No significant edema. Neurologic: Alert, conversant. Speech fluent, face symmetric. Moves all extremities equally. Skin: Warm, dry well perfused. Affect: Normal. Const: Vital Signs, click to edit/add: Vital Signs - 24 hr 04/08/24 15:57 04/08/24 16:02 04/08/24 16:03 Temperature 101.7 F H Pulse Rate 82 88 Pulse Rate [Pulse Oximeter] 81 Respiratory Rate 24 Blood Pressure 116/64 Blood Pressure [Ri ght Upper Arm] 119/64 Pulse Oximetry 91 91 91 Oxygen Delivery Me thod Room Air 04/08/24 16:15 04/08/24 16:30 04/08/24 16:45 Temperature Pulse Rate 78 82 87 Pulse Rate [Pulse Oximeter] Respiratory Rate Blood Pressure Blood Pressure [Ri ght Upper Arm] Pulse Oximetry 93 90 94 Oxygen Delivery Me thod 04/08/24 17:00 04/08/24 17:15 04/08/24 17:46 Temperature 100.9 F H Pulse Rate 80 72 Pulse Rate [Pulse Oximeter] Respiratory Rate Blood Pressure Blood Pressure [Ri ght Upper Arm] Pulse Oximetry 92 87 L Oxygen Delivery Me thod 04/08/24 17:49 Temperature Pulse Rate Pulse Rate [Pulse Oximeter] Respiratory Rate Blood Pressure Blood Pressure [Ri ght Upper Arm] Pulse Oximetry 95 Oxygen Delivery Me thod Course Course ED Course: Will give her a DuoNeb and see if that lets her move a little better air, O2 sats are marginal. X-ray to look for pneumonia. Viral swab pending, suspect influenza based on prevalence in the community. Lung sounds are improved after the neb. She feels that her cough is a little better as well. O2 sats remained in the low 90s. Chest x-ray by my review is negative, I do not see evidence of pneumonia. Fluids a is positive. Supportive care for influenza including ibuprofen and Tylenol as needed. I am going to treat her for bronchitis as well with prednisone and albuterol. For worsening shortness of breath or other new symptoms return any time. Otherwise, see primary care if not improving over the next week. Vital Signs Vital signs: Initial Vital Signs Temperature 101.7 F H 04/08/24 15:57 Temperature Source Temporal Artery Scan 04/08/24 15:57 Pulse Rate 81 04/08/24 15:57 Pulse Rhythm Regular 04/08/24 15:57 Respiratory Rate 24 04/08/24 15:57 Blood Pressure 119/64 04/08/24 15:57 Blood Pressure Mean 82 04/08/24 15:57 Blood Pressure Position High-Fowlers 04/08/24 15:57 Pulse Oximetry 91 04/08/24 15:57 Oxygen Delivery Method Room Air 04/08/24 15:57 Vital Signs Temperature 101.7 F H 04/08/24 15:57 Pulse Rate 81 04/08/24 15:57 Respiratory Rate 24 04/08/24 15:57 Blood Pressure 119/64 04/08/24 15:57 Pulse Oximetry 91 04/08/24 15:57 Oxygen Delivery Method Room Air 04/08/24 15:57 Temperature 100.9 F H 04/08/24 17:46 Pulse Rate 72 04/08/24 17:15 Respiratory Rate 24 04/08/24 15:57 Blood Pressure 116/64 04/08/24 16:02 Pulse Oximetry 95 04/08/24 17:49 Oxygen Delivery Method Room Air 04/08/24 15:57 Medications Administered Medications: Discontinued Medications Generic Name Dose Route Start Last Admin Trade Name Freq PRN Reason Stop Dose Admin Acetaminophen 1,000 mg 04/08/24 16:22 04/08/24 16:42 Acetaminophen 500 Mg Tablet PO 04/08/24 16:23 1,000 mg ONCE ONE Administration Albuterol/Ipratropium 1 neb 04/08/24 16:22 04/08/24 16:44 Iprat-Albut 0.5-2.5 Mg/3 Ml Neb 04/08/24 16:23 1 neb ONCE ONE Administration Medical Decision Making Lab Data Labs: Lab Results 04/08/24 Range/Units 15:52 SARS-CoV-2 (PCR) Negative SARS-CoV-2 (Negative) Influenza Type A (PCR) POSITIVE PCR FLU A A (Negative) Influenza Type B (PCR) Negative PCR FLU B (Negative) RSV (PCR) Negative PCR RSV (Negative) Imaging Data Chest x-ray: Attestation: I have reviewed the pertinent imaging results. Radiologist's impression: [place] [address] Diagnostic Imaging Report Patient: Gerri Hayward MR#: [id number] : 1995 Acct:[id number] Loc: ED Service Date: 04/08/[address]: Ordering Physician: Eboni Cooper M.D. Date of Service: 04/08/24 Procedure(s): XR chest 2V Accession Number(s): [id number] cc: Eboni Cooper M.D.; Provider,Not a Local~ For Patients: As a result of the Cures Act, medical imaging exams and procedure reports are released immediately into your electronic medical record. You may view this report before your referring provider. If you have questions, please contact your health care provider. INDICATION: COUGH, VOMITING, BODY ACHES. TECHNIQUE: Chest 2 views. COMPARISON: None. FINDINGS: Cardiovascular and mediastinum: Cardiomediastinal silhouette is within normal limits Lungs and pleural spaces: Lungs are clear. No sign of pleural effusion. No pneumothorax. Bones and soft tissues: No significant findings. IMPRESSION: No acute or significant findings. Dictated by Alie Barnes MD @ 04/08/2024 5:13:54 PM Discharge Plan Discharge Clinical Impression: Influenza A, Bronchitis Patient Disposition: Home, Self-Care Condition: Stable Instructions: Influenza (DC), Acute Bronchitis (ED) Additional Instructions: Influenza is a viral infection and should gradually improve over the next week or so. You can use ibuprofen and/or Tylenol as needed for fevers, body pain, sore throat, headache etc.. I have prescribed prednisone and albuterol to help with your breathing and cough. If you feel you are worsening, having more difficulty breathing, return to the emergency department. Otherwise, follow up in your regular clinic if you do not feel you are improving over the next week. Prescriptions: New prednisone 20 mg tablet 20 mg PO BID Qty: 10 0RF albuterol sulfate 90 mcg/actuation HFA aerosol inhaler 2 puff inhalation 6XD PRN (Reason: shortness of breath or wheezing) Qty: 6.7 0RF Follow Up/Referrals: Alan Yeung MD [Referring] - Stand Alone Forms: [employer] Info Instructions
[2024-04-08 16:37] LABS: PCR FLU A POSITIVE PCR FLU A (Negative); PCR FLU B Negative PCR FLU B (Negative); PCR RSV Negative PCR RSV (Negative); SARS PCR* Negative SARS-CoV-2 (Negative)
[2024-04-08] MEDS: ACETAMINOPHEN 500 MG TABLET 1000 MG PO (16:42)
[2024-04-08] MEDS: IPRAT-ALBUT 0.5-2.5 MG/3 ML NEB 1 NEB IH (16:44)
--- OUTSIDE RECORDS SUMMARY | 2024-04-08 16:47 | XMS_ITS | Encounter Summary ---
Author Organization [facility] Address [address] [address] Phone Care Team Providers Care Car Audio Installer Name Role Phone Bang Gibson MD Primary Care Provider [phone] Encounter Details Date Type Department Care Team (Latest Contact Info) Description 03/21/2024 Travel Social History Tobacco Use Types Packs/Day Years Used Date Smoking Tobacco: Never Smokeless Tobacco: Never Alcohol Use Standard Drinks/Week Comments Yes 0 (1 standard drink = 0.6 oz pur e alcohol) Rare [facility] Utilities Answer Date Recorded In the past [...] week 12/13/2021 How often do you attend voodoo or druze serv ices? Never 12/13/2021 Do you belong to any clubs o r organizations such as voodoo groups, unions, fraternal or athletic groups, or [...] Answer Date Recorded PHQ-2 Total 0 02/17/2024 [facility]at [facility] - Occupational Stress [...] were you homeless or living in a group home (including now)? No 08/19/2023 EH IP [...] 11:45 PM CDT Ernesto Ramos, RN documented in this encounter Plan of Treatment Upcoming Encounters Date Type Department Care Team (Late st Contact Info) Description 04/11/2024 4:30 PM REGISTERED NURSE FETAL Appointment [facility] Radiology [facility] [address] [place] [address] Licha Acuna, RN, [address] [place] [address] documented as of this encounter Visit Diagnoses Not on filedocumented in this encounter Care Teams Car Audio Installer Relationship Specialty [place] [address] [address] PCP - General Family Medicine 03/28/23 documented as of this encounter
--- OUTSIDE RECORDS SUMMARY | 2024-04-08 16:47 | XMS_ITS | Continuity of Care Document ---
Author Organization [facility] Address [address] [place] [address] Phone Care Team Providers Care Dean Of Graduate Studies Name Role Phone Dennis Marsh MD Unavailable Unavailable Allergies, Adverse Reactions, Alerts Substance Reaction Status Criticality No Known Allergies Active No Inform ation Medications Medication Instructions Dosage Effective Dates (start - stop) Status Comments CITALOPRAM HBR (unknown strength) Not Available - Active CYCLOBENZAPRINE HCL (unknown strength) Not Available - Active PROPRANOLOL HCL (unknown strength) Not Available - Active GABAPENTIN (unknown strength) Not Available - Active Procedures Procedure Date Office/Outpatient Visit,[facility] 2023 Advance Directives Directive Yes / No Effective Date File Name No Information Encounters Encounter Description Practice Location Reason(s) For Visit Diagnoses Date Provider Providers Copied on Encounter Office/Outpati ent Visit,[facility], [facility], [address], [facility] [place], [id number], [place] tel:[phone] [facility] Unspecified kyphosis, cervical regionOther cervical disc degeneration, high cervical region Maximo Collins. [facility], [address], [address], [facility] [place], [id number], [place]. tel:[phone] Referring Provider: Scott Moreno, [facility] [address] [place], [address]. tel:[phone] Family History Family Member Type Diagnosis Age At Onset Sister Problem (finding) Suicide Sister Problem (finding) Depression Sister Problem (finding) Anesthesia reaction Sister Problem (finding) Blood disorder Sister Problem (finding) Scoliosis Father Problem (finding) Hypertension Brother Problem (finding) Suicide Payers Payer name Insurance type Covered libertarian ID Mary Ellen sousa(s) BCBS [place] Blue Plus BL [id number] Social History Type Description Quantity Date Captured [...]
--- OUTSIDE RECORDS SUMMARY | 2024-04-08 16:47 | XMS_ITS | Encounter Summary ---
Author Organization [facility] Address [address] [address] Phone Care Team Providers Care Water Inspector Name Role Phone Bang Gibson MD Primary Care Provider [phone] Reason for Visit * Reason Onset Date Comments Referral 02/20/2024 [facility] Encounter Details Date Type Department Care Team ([facility] Contact Info) Description 02/20/[address] [facility] - [facility] [place] 20[address] [place] [address] Nusrat Kaplan Referral ([facility]) Social History Tobacco Use Types Packs/Day Years Used Date Smoking Tobacco: Never Smokeless Tobacco: Never Alcohol Use Standard Drinks/Week Comments Yes 0 (1 standard drink = 0.6 oz pur e alcohol) Rare [facility] Utilities Answer Date Recorded In the past 12 months has [facility] [employer], gas, oil, or water [employer] threatened to shut off services in your [...] week 12/13/2021 How often do you attend yarsanism or anabaptist serv ices? Never 12/13/2021 Do you belong to any clubs o r organizations such as yarsanism groups, unions, fraternal or athletic groups, or [...] Answer Date Recorded PHQ-2 Total 0 02/17/2024 [facility] of Occupat ional Health - Occupational Stress [...] in a usp (including now)? No 08/19/2023 EH IP Custom [...] - 02/23/2024 3:21 PM CST Referral ID [id number] Future appointment on 04-03-24 w/Dr. Eren Bustillo T SORTER * Telephone Encounter - Shakeel Kaplanine Doug - 02/20/2024 10:49 AM CST Referral received and faxed to [facility]. Faxed referral, demographics, OVS notes, financial summary, problem list and current medications. Patient will receive a call to schedule appointment from that facility once patient's chart information has been received. For questions, please have patient call [phone] to speak with scheduling office. Patient should be sure to contact their insurance company to verify benefit coverage for this visitprior to being seen for this referral. If there are questions or concerns, please contact the appropriate Referral Center; [facility]: [phone] [place]: [phone] [place]: [phone] Thank you! T SORTER documented in this encounter Plan of Treatment Upcoming Encounters Date Type Department Care Team (Late st Contact Info) Description 04/11/2024 4:30 PM SHEET SORTER Appointment [facility] Radiology [facility] [address] [address] Licha Acuna RN, [address] [place], [place] [address] documented as of this encounter Visit Diagnoses Not on filedocumented in this encounter Care Teams Water Inspector Relationship Specialty [place] [address] [facility] [address] [place] [address] PCP - General Family Medicine 03/28/23 documented as of this encounter
--- OUTSIDE RECORDS SUMMARY | 2024-04-08 16:47 | XMS_ITS | Encounter Summary ---
Author Organization [facility] Address [address] [address] Phone Care Team Providers Care Archery Instructor Name Role Phone Bang Gibson MD Primary Care Provider [phone] Reason for Visit * Reason Comments Hearing Loss Signs Of Infection * Office Visit (Routine) - New Request Specialty Diagnoses / Procedures Referred By Dariana jefferson Referred To Contact Audiology Diagnoses Non-recurrent acute suppurative otitis media of right ear without spontaneous rupture [place] [address] [address] Phone: tel: fax: Referral ID Status Reason Start Date Expiration Date V isits Requested Visits Authorized [id number] New Request 02/24/2024 02/23/2025 1 1 Encounter Details Date Type Department Care Team ([facility] Contact Info) Description 03/21/2024 8:00 AM AUTOMOBILE BODY CUSTOMIZER Office Visit [facility] 2023 [place], [place] [address] Komal Liriano, AuD [address] [address] 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 Never 12/13/2021 Do you belong to any clubs o r organizations such as amish groups, unions, fraternal or athletic groups, or [...] Date Recorded PHQ-2 Total 0 02/17/2024 [facility] - [facility]ational Stress Questionnaire Answer Date Recorded [...] were you homeless or living in a senior living (including now)? No 08/19/2023 EH IP Custom [...] normal hearing in the left ear. Speech parts inspector thresholds(SRT's) were obtained at 35dB in the [...] Pt given a copy of Audiogram: Yes MOBILE BODY CUSTOMIZER documented in this encounter Plan of Treatment Upcoming Encounters Date Type Department Care Team (Late st Contact Info) Description 04/11/2024 4:30 PM AUTOMOBILE BODY CUSTOMIZER Appointment [facility] Radiology [facility] [address] [address] Licha Acuna RN, HOUSING COORDINATOR [address] [place], [place] [address] documented as of this encounter Procedures Procedure Name Priority Date/Time Associated Diagnosis Comments TYMPANOMETRY Routine 03/21/2024 12:00 AM AUTOMOBILE BODY CUSTOMIZER Conductive hearing loss of right ear with unrestricted hearing of left ear COMPREHENSIVE HEARING TEST Routine 03/21/2024 12:00 AM AUTOMOBILE BODY CUSTOMIZER Conductive hearing loss of right ear with unrestricted hearing of left ear documented in this encounter Results * COMPREHENSIVE HEARING TEST (03/21/2024 12:00 AM AUTOMOBILE BODY CUSTOMIZER) 03/21/2024 [place] Au[facility] EC PROCEDURES Final Re sult * TYMPANOMETRY (03/21/2024 12:00 AM AUTOMOBILE BODY CUSTOMIZER) 03/21/2024 [place] AuD EC PROCEDURES Final Re sult documented in this encounter Visit Diagnoses Diagnosis Conductive hearing loss of right ear with unrestricted hearing of left ear- Primary documented in this encounter Care Teams Archery Instructor Relationship Specialty [place] [address] [address] PCP - General Family Medicine 03/28/23 documented as of this encounter
--- OUTSIDE RECORDS SUMMARY | 2024-04-08 16:47 | XMS_ITS | Clinical Summary ---
Author Organization [facility] Address [address] [address] Phone Care Team Providers Care Rounder And Backer Name Role Phone Bang Gibson MD Primary Care Provider [phone] Allergies Active Allergy Reactions Criticality Noted Date Comments Bupropion Unknown Medium 04/02/2020 [place] numb and increased suicide ideations Grapefruit Concentrate [...] to be around animals. 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) 03/21/2024 Travel 02/20/2024 Telephone [facility] [place] 2023 [place], [place] [address] Nusrat Kaplan Referral ([facility]) 02/17/2024 1:30 PM ELECTRIC SIGN ASSEMBLER Office Visit [facility] [address] [place] [address] Bang Gibson MD Non-recurrent acute suppurative otitis [...] = 0.6 oz pur e alcohol) Rare [facility] Utilities Answer Date Recorded In the past 12 months has e [employer], gas, oil, or water [employer] threatened to shut off services in your [...] week 12/13/2021 How often do you attend christian or yazdanism serv ices? Never 12/13/2021 Do you belong to any clubs o r organizations such as christian groups, unions, fraternal or athletic groups, or [...] Date Recorded PHQ-2 Total 0 02/17/2024 [facility] of Occupat ional Health - Occupational [...] any time in the past [facility], were you homeless or living in a half-way (including now)? No 08/19/2023 IP [employer] Utilities Answer Date Elijah rded Retired - [...] Comments Blood Pressure 123/78 02/17/2024 1:11 PM ELECTRIC SIGN ASSEMBLER Pulse 81 02/17/2024 1:11 PM ELECTRIC SIGN ASSEMBLER Temperature 36.8 C (98.2 F) 02/17/2024 1:11 PM ELECTRIC SIGN ASSEMBLER Respiratory Rate 14 08/19/2023 11:4 6 AM CDT Oxygen Saturation 99% 02/17/2024 1:11 PM ELECTRIC SIGN ASSEMBLER Inhaled Oxygen Concentration - - Weight 102.3 kg (225 lb 8.5 oz) 024 11:46 AM CDT Height 175.3 cm (5' 9) 08/19/2023 11:4 6 AM CDT Body Mass Index 33.31 08/19/2023 11:46 AM CDT Plan of Treatment Upcoming Encounters Date Type Department Care Team (Late st Contact Info) Description 04/11/2024 4:30 PM ELECTRIC SIGN ASSEMBLER Appointment [facility] [place] [address] [address] Licha Acuna, RN, VERIFY [facility]P [facility] [address] [facility] [address] [place] [id number] Health Maintenance Due Date Last Done Comments [...] COMPREHENSIVE HEARING TEST Routine 03/21/2024 12:00 AM ELECTRIC SIGN ASSEMBLER Conductive hearing loss of right ear with unrestricted hearing of left ear TYMPANOMETRY Routine 03/21/2024 12:00 AM ELECTRIC SIGN ASSEMBLER Conductive hearing loss of right ear with unrestricted hearing of left ear PAP, LIQUID BASED Routine 01/06/2022 8:4 9 AM CDT Screening for malignant neoplasm of cervix from Last 3 Months or Most Recently Relevant to Health Maintenance Results * TYMPANOMETRY (03/21/2024 12:00 AM ELECTRIC SIGN ASSEMBLER) 03/21/2024 Komal Liriano AuD EC PROCEDURES Final Re sult * COMPREHENSIVE HEARING TEST (03/21/2024 12:00 AM ELECTRIC SIGN ASSEMBLER) 03/21/2024 Komal Liriano AuD EC PROCEDURES Final Re sult * PAP, LIQUID BASED (01/06/2022 8:49 AM CDT) Case Report Gynecologic Cytology Report Case: [id number] Authorizing Provider: Tabby Scott DO Collected: 01/06/2022 0849 Ordering Location: [facility] Received: 01/06/2022 0903 Obstetrics/Gyneco logy First Screen: Ernesto Hsu Specimen: LIQUID-BASED PAP, Cervix 01/07/2022 8:27 AM CDT [facility] Gynecologic Cytology Interpretation , SurePath Collection Negative for Intraepithelial Lesion or Malignancy. 01/07/2022 8:27 AM CDT [facility] Other Findings Marked inflammation present. 01/07/2022 8:27 AM CDT [facility] Specimen Adequacy Satisfactory for evaluation, endocervical/trans formation zone component is present. 01/07/2022 8:27 AM CDT [facility] Pap Disclaimer Note: The Pap test is a screening procedure and is not, by itself, diagnostic. False negatives and positives do occur. Correlation with clinical findings, history and a program of regular examinations including Pap tests is warranted to help detect cancers and precursor lesions of the female genital tract. 01/07/2022 8:27 AM CDT [facility] [place] VAGINAL CERVIX / Unknown Non-blood collection / Unknown 01/06/2022 8:49 AM CDT 01/06/2022 9:03 AM CDT Tabby Scott DO EC PATHOLOGY ORDERABLES F inal Result [facility] [address] from Last 3 Months or Most Recently Relevant to Health Maintenance [facility] Care Teams Rounder And Backer Relationship Specialty [place] [address] [address] PCP - General Family Medicine 03/28/23
--- OUTSIDE RECORDS SUMMARY | 2024-04-08 16:48 | XMS_ITS | Referral Summary ---
Author Organization [facility] Address [address] [place] [address]. [place] [address] Care Team Providers Care Nut Dehydrator Operator Name Role Phone No Ref-Primary, Physician Primary Care Provider Allergies No known active allergies Medications CITALOPRAM HYDROBROMIDE PO Acti ve trimethoprim-polymy linda b (POLYTRIM) 73445-7.1 UNIT/ML-% ophthalmic solutionIndications :Acute bacterial conjunctivitis of [...] on file Insurance [employer] Care Teams Nut Dehydrator Operator Relationship Specialty Start Date End Date No Ref-Primary, Physician PCP - General 11/24/17
--- OUTSIDE RECORDS SUMMARY | 2024-04-08 16:48 | XMS_ITS | Clinical Summary ---
Author Organization [facility] Address [address] [place] [address]. [place] [address] Care Team Providers Care Prize Fighter Name Role Phone No Ref-Primary, Physician Primary Care Provider Allergies No known active allergies Medications CITALOPRAM HYDROBROMIDE PO Acti ve trimethoprim-polymy linda b (POLYTRIM) 51755-1.1 UNIT/ML-% ophthalmic solutionIndications :Acute bacterial conjunctivitis of [...] this topic Insurance [employer] Care Teams Prize Fighter Relationship Specialty Start Date End Date No Ref-Primary, Physician PCP - General 11/24/17
--- OUTSIDE RECORDS SUMMARY | 2024-04-08 16:48 | XMS_ITS | Clinical Summary ---
Author Organization [facility] Address [place], [place] [address] Care Team Providers Care Hydraulics Engineer Name Role Phone Bang Gibson Primary Care Provider Unavaila ble Allergies Active Allergy Reactions Criticality Noted Date Comments Grapefruit Anaphylaxis High 2021 Bupropion Other - Describe In Comment Field Medium 04/02/2020 [place] numb and increased suicide ideations Medications cyclobenzaprine [...] Department Care Team Description 02/16/2024 9:20 AM BOTTOM STAINER Office Visit [facility] [address] [place] [phone] Calvin Howard MD Follow Up (procedure from 01/26 cervical RFA (B) C3.C4,C5 discuss pain.) 02/16/2024 Travel 01/27/2024 2:37 PM BOTTOM STAINER Anesthesia Event [facility] [address] [place] [address] Maryse Harry CRNA 01/27/2024 2:30 PM BOTTOM STAINER - 01/27/2024 3:30 PM BOTTOM STAINER Surgery [facility] [address] [place] [address] Calvin Howard MD Cervical medial branch RFA bilateral C3, C4, C5, wih MAC Anesth, with decadron 10 mg 01/27/2024 1:34 PM BOTTOM STAINER - 01/27/2024 11:59 PM BOTTOM STAINER Hospital Encounter [facility] [address], [place] [id number] Calvin Howard MD Arthropathy of cervical facet [...] on file Legal Sex Female 5:22 AM BOTTOM STAINER Gender Identity Not on file Sexual Orientation Not on file 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 Not on file Not on file Not on file Obstetrics History Para Term AB IAB SAB Ectopic Multiple Livin g Live Births 0 0 0 0 0 0 0 0 0 0 Last Filed Vital Signs Vital Sign Reading Time Taken Comments Blood Pressure 110/68 02/16/2024 9:34 AM BOTTOM STAINER Pulse 66 02/16/2024 9:34 AM BOTTOM STAINER Temperature 36.7 C (98.1 F) 02/16/2024 9:34 AM BOTTOM STAINER Respiratory Rate 14 02/16/2024 9:34 AM BOTTOM STAINER Oxygen Saturation 98% 02/16/2024 9:34 AM BOTTOM STAINER Inhaled Oxygen Concentration - - Weight 115.7 kg (255 lb) 02/16/2024 9:34 AM BOTTOM STAINER Height 175.3 cm (5' 9) 02/16/2024 9:34 AM BOTTOM STAINER Body Mass Index 37.66 02/16/2024 9:34 AM BOTTOM STAINER Plan of Treatment Health Maintenance Due Date [...] LESS 1 HR Routine 01/27/2024 3:19 PM BOTTOM STAINER Arthropathy of cervical facet joint RADIOFREQUENCY MEDIAL BRANCH NEUROTOMY 01/27/2024 2:31 PM BOTTOM STAINER Facet arthropathy, cervical Case Notes Block A, 60 min (DL). 10 cm RFA needles from Last 3 Months Results * XR C-ARM EQUAL OR LESS 1 HR (01/27/2024 3:19 PM BOTTOM STAINER) Narrative Silent, Sched - 01/27/2024 3:20 PM BOTTOM STAINER The result for this exam is either scanned and attached to this order or are included in the ordering provider's NOTES from the patient's Office Visit or Surgical procedure from this date. us Calvin Howard MD FLUOROSCOPY Final Resul t from Last 3 Months Insurance [facility] Advance Directives * Full Code (Latest Code [...] Code Status Discussion: Reviewed Preferences Care Teams Hydraulics Engineer Relationship Specialty Start Date End Date Bang Gibson PCP - General 05/23/23
== END 2024-04-08 17:48 | disposition home or self-care (01) ==
PROVIDERS: Emergency Provider Emergency Medicine
DX: J10.1 Influenza due to other identified influenza virus with other respiratory manifestations (principal); J40 Bronchitis, not specified as acute or chronic
CPT/HCPCS: 71046; 87631; 99284; A9270

== ENCOUNTER 2024-04-09 20:37 | Inpatient (IN) | payer BC, SELFPAY ==
[2024-04-09] VITALS (12 sets, daily range): BP systolic 95–117; BP diastolic 58–71; PULSE 73–91; RESP 20–24; TEMP 36.8; O2SAT 86–99; BMI 36.9
--- OUTSIDE RECORDS SUMMARY | 2024-04-09 20:39 | XMS_ITS | Encounter Summary ---
Author Organization [facility] Address [address] [address] Phone Care Team Providers Care Protective Services Officer Name Role Phone Bang Gibson MD Primary Care Provider [phone] Encounter Details Date Type Department Care Team (Latest Contact Info) Description 03/21/2024 Travel Social History Tobacco Use Types Packs/Day Years Used Date Smoking Tobacco: Never Smokeless Tobacco: Never Alcohol Use Standard Drinks/Week Comments Yes 0 (1 standard drink = 0.6 oz pur e alcohol) Rare [facility] Utilities Answer Date Recorded In the past [...] week 12/13/2021 How often do you attend gnosticism or yazidism serv ices? Never 12/13/2021 Do you belong to any clubs o r organizations such as gnosticism groups, unions, fraternal or athletic groups, or [...] Answer Date Recorded PHQ-2 Total 0 02/17/2024 [facility] - Occupational [...] were you homeless or living in a penitentiary (including now)? No 08/19/2023 EH IP Custom [...] st Contact Info) Description 04/11/2024 4:30 PM INSPECTOR DIALS Appointment [facility] Radiology [facility] [address] [place] [address] Licha Acuna, RN, [address] [place] [address] documented as of this encounter Visit Diagnoses Not on filedocumented in this encounter Care Teams Protective Services Officer Relationship Specialty [place] [address] [address] PCP - General Family Medicine 03/28/23 documented as of this encounter
--- OUTSIDE RECORDS SUMMARY | 2024-04-09 20:39 | XMS_ITS | Continuity of Care Document ---
Author Organization [facility] Address [address] [place] [address] Phone Care Team Providers Care Interline Clerk Name Role Phone Dennis Marsh MD Unavailable [...] Available - Active Procedures Procedure Date Office/Outpatient Visit,[facility] 2023 Advance Directives Directive Yes / No Effective Date File Name No Information Encounters Encounter Description Practice Location Reason(s) For Visit Diagnoses Date Provider Providers Copied on Encounter Office/Outpati ent Visit,[facility], [facility], [address], [facility] [place], [id number], [place] tel:[phone] [facility] Unspecified kyphosis, cervical regionOther cervical disc degeneration, high cervical region Maximo Collins. [facility], [address], [address], [facility] [place], [id number], [place]. tel:[phone] Referring Provider: Scott Moreno, [facility] [address] [place], [address]. tel:[phone] Family History Family Member Type Diagnosis Age At Onset Sister Problem (finding) Suicide Sister Problem (finding) Depression Sister Problem (finding) Anesthesia reaction Sister Problem (finding) Blood disorder Sister Problem (finding) Scoliosis Father Problem (finding) Hypertension Brother Problem (finding) Suicide Payers Payer name Insurance type Covered constitution party ID Mary Ellen sousa(s) BCBS [place] Blue [place] [id number] Social History Type Description Quantity Date Captured [...]
--- OUTSIDE RECORDS SUMMARY | 2024-04-09 20:39 | XMS_ITS | Clinical Summary ---
Author Organization [facility] Address [place], [place] [address] Care Team Providers Care Ham Stripper Name Role Phone Bang Gibson Primary Care Provider Unavaila ble Allergies Active Allergy Reactions Criticality Noted Date Comments Grapefruit Anaphylaxis High 2021 Bupropion Other - Describe In Comment Field Medium 04/02/2020 [place] numb and increased suicide ideations Medications cyclobenzaprine [...] Department Care Team Description 02/16/2024 9:20 AM BRICKMASON SUPERVISOR Office Visit [facility] [address] [place] [phone] Calvin Howard MD Follow Up (procedure from 01/26 cervical RFA (B) C3.C4,C5 discuss pain.) 02/16/2024 Travel 01/27/2024 2:37 PM BRICKMASON SUPERVISOR Anesthesia Event [facility] [address] [place] [address] Maryse Harry CRNA 01/27/2024 2:30 PM BRICKMASON SUPERVISOR - 01/27/2024 3:30 PM BRICKMASON SUPERVISOR Surgery [facility] [address] [place] [address] Calvin Howard MD Cervical medial branch RFA bilateral C3, C4, C5, wih MAC Anesth, with decadron 10 mg 01/27/2024 1:34 PM BRICKMASON SUPERVISOR - 01/27/2024 11:59 PM BRICKMASON SUPERVISOR Hospital Encounter [facility] [address], [place] [phone] Calvin Howard MD Arthropathy of cervical facet [...] on file Legal Sex Female 5:22 AM BRICKMASON SUPERVISOR Gender Identity Not on file Sexual Orientation Not on file 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3 cm (5' 9) 02/16/2024 9:34 AM BRICKMASON SUPERVISOR Body Mass Index 37.66 02/16/2024 9:34 AM BRICKMASON SUPERVISOR Plan of Treatment Health Maintenance Due Date [...] LESS 1 HR Routine 01/27/2024 3:19 PM BRICKMASON SUPERVISOR Arthropathy of cervical facet joint RADIOFREQUENCY MEDIAL BRANCH NEUROTOMY 01/27/2024 2:31 PM BRICKMASON SUPERVISOR Facet arthropathy, cervical Case Notes Block A, 60 min (DL). 10 cm RFA needles from Last 3 Months Results * XR C-ARM EQUAL OR LESS 1 HR (01/27/2024 3:19 PM BRICKMASON SUPERVISOR) Narrative Silent, Sched - 01/27/2024 3:20 PM BRICKMASON SUPERVISOR The result for this exam is either scanned and attached to this order or are included in the ordering provider's NOTES from the patient's Office Visit or Surgical procedure from this date. us Calvin Howard MD FLUOROSCOPY Final Resul t from Last 3 Months Insurance [facility] Advance Directives * Full Code (Latest Code [...] Code Status Discussion: Reviewed Preferences Care Teams Ham Stripper Relationship Specialty Start Date End Date Bang Gibson PCP - General 05/23/23
--- OUTSIDE RECORDS SUMMARY | 2024-04-09 20:39 | XMS_ITS | Clinical Summary ---
Author Organization [facility] Address [address] [address] Phone Care Team Providers Care Band Tier Name Role Phone Bang Gibson MD Primary Care Provider [phone] Allergies Active Allergy Reactions Criticality Noted Date Comments Bupropion Unknown Medium 04/02/2020 [place] numb and increased suicide ideations Grapefruit Concentrate [...] to be around animals. 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 Assessment & Plan [...] Department Care Team Description 03/21/2024 8:00 AM VP INFORMATICS Office Visit [facility] [address] [place] [address] Komal Liriano AuD Conductive hearing loss of right ear with unrestricted hearing of left ear (Primary Dx) 03/21/2024 Travel 02/20/2024 Telephone [facility] [place] [address] [place], [place] [address] Nusrat Kaplan Referral ([facility]) 02/17/2024 1:30 PM VP INFORMATICS Office Visit [facility] [address] [place] [address] Bang Gibson MD Non-recurrent acute suppurative otitis [...] = 0.6 oz pur e alcohol) Rare [facility] Utilities Answer Date Recorded In the past 12 months has e pushd, gas, oil, or water [employer] threatened to shut off services in your [...] week 12/13/2021 How often do you attend samaritan or mandaeism serv ices? Never 12/13/2021 Do you belong to any clubs o r organizations such as samaritan groups, unions, fraternal or athletic groups, or [...] Answer Date Recorded PHQ-2 Total 0 02/17/2024 [facility] of Occupat ional Health - Occupational Stress [...] any time in the past 12 m [facility], were you homeless or living in a correction (including now)? No 08/19/2023 IP [employer] Utilities Answer Date Elijah rded Retired - [...] Comments Blood Pressure 123/78 02/17/2024 1:11 PM VP INFORMATICS Pulse 81 02/17/2024 1:11 PM VP INFORMATICS Temperature 36.8 C (98.2 F) 02/17/2024 1:11 PM VP INFORMATICS Respiratory Rate 14 08/19/2023 11:4 6 AM CDT Oxygen Saturation 99% 02/17/2024 1:11 PM VP INFORMATICS Inhaled Oxygen Concentration - - Weight 102.3 kg (225 lb 8.5 oz) 024 11:46 AM CDT Height 175.3 cm (5' 9) 08/19/2023 11:4 6 AM CDT Body Mass Index 33.31 08/19/2023 11:46 AM CDT Plan of Treatment Upcoming Encounters Date Type Department Care Team (Late st Contact Info) Description 04/11/2024 4:30 PM VP INFORMATICS Appointment [facility] Rad[address] [address] Licha Acuna, RN, ROTARY DRILL RIG OPERATOR [facility] [address] [facility] [address] [place] [id number] Health Maintenance Due Date Last Done Comments [...] COMPREHENSIVE HEARING TEST Routine 03/21/2024 12:00 AM VP INFORMATICS Conductive hearing loss of right ear with unrestricted hearing of left ear TYMPANOMETRY Routine 03/21/2024 12:00 AM VP INFORMATICS Conductive hearing loss of right ear with unrestricted hearing of left ear PAP, LIQUID BASED Routine 01/06/2022 8:4 9 AM CDT Screening for malignant neoplasm of cervix from Last 3 Months or Most Recently Relevant to Health Maintenance Results * TYMPANOMETRY (03/21/2024 12:00 AM VP INFORMATICS) 03/21/2024 Komal Liriano AuD EC PROCEDURES Final Re sult * COMPREHENSIVE HEARING TEST (03/21/2024 12:00 AM VP INFORMATICS) 03/21/2024 Komal Liriano AuD EC PROCEDURES Final Re sult * PAP, LIQUID BASED (01/06/2022 8:49 AM CDT) Case Report Gynecologic Cytology Report Case: [id number] Authorizing Provider: aTbby Scott DO Collected: 01/06/2022 0849 Ordering Location: [facility] Received: 01/06/2022 0903 Obstetrics/Gyneco logy First Screen: Ernesto Hsu Specimen: LIQUID-BASED PAP, Cervix 01/07/2022 8:27 AM CDT [facility] Gynecologic Cytology Interpretation , SurePath Collection Negative for Intraepithelial Lesion or Malignancy. 01/07/2022 8:27 AM CDT [facility] Other Findings Marked inflammation present. 01/07/2022 8:27 AM CDT [facility] Specimen Adequacy Satisfactory for evaluation, endocervical/trans formation zone component is present. 01/07/2022 8:27 AM CDT [facility] Pap Disclaimer Note: The Pap test is a screening procedure and is not, by itself, diagnostic. False negatives and positives do occur. Correlation with clinical findings, history and a program of regular examinations including Pap tests is warranted to help detect cancers and precursor lesions of the female genital tract. 01/07/2022 8:27 AM CDT [facility] [place] VAGINAL CERVIX / Unknown Non-blood collection / Unknown 01/06/2022 8:49 AM CDT 01/06/2022 9:03 AM CDT Tabby Scott DO EC PATHOLOGY ORDERABLES F inal Result [facility] [address] from Last 3 Months or Most Recently Relevant to Health Maintenance Insurance [facility] [place] [address] Care Teams Band Tier Relationship Specialty [place] [address] [address] PCP - General Family Medicine 03/28/23
--- OUTSIDE RECORDS SUMMARY | 2024-04-09 20:39 | XMS_ITS | Encounter Summary ---
Author Organization [facility] Address [address] [address] Phone Care Team Providers Care Stitching Machine Setter Name Role Phone Bang Gibson MD Primary Care Provider [phone] Reason for Visit * Reason Comments Hearing Loss Signs Of Infection * Office Visit (Routine) - New Request Specialty Diagnoses / Procedures Referred By Dariana jefferson Referred To Contact Audiology Diagnoses Non-recurrent acute suppurative otitis media of right ear without spontaneous rupture [place] [address] [address] Phone: tel: fax: Referral ID Status Reason Start Date Expiration Date V isits Requested Visits Authorized [id number] New Request 02/24/2024 02/23/2025 1 1 Encounter Details Date Type Department Care Team ([facility] Contact Info) Description 03/21/2024 8:00 AM REPRODUCTION MACHINE LOADER Office Visit [facility]UD[facility] 2023 [place], [place] [address] Komal Liriano, AuD [address] [address] Conductive hearing loss of right ear with unrestricted hearing of left ear (Primary Dx) Social History Tobacco Use Types Packs/Day Years Used Date Smoking Tobacco: Never Smokeless Tobacco: Never Alcohol Use Standard Drinks/Week Comments Yes 0 (1 standard drink = 0.6 oz pur e alcohol) Rare [facility] Utilities Answer Date Recorded In [...] week 12/13/2021 How often do you attend latter day or voodoo serv ices? Never 12/13/2021 Do you belong to any clubs o r organizations such as latter day groups, unions, fraternal or athletic groups, or [...] Answer Date Recorded PHQ-2 Total 0 02/17/2024 [facility] - Occupational Stress Questionnaire Answer Date [...] were you homeless or living in a chcf (including now)? No 08/19/2023 EH IP Custom [...] normal hearing in the left ear. Speech office receptionist thresholds(SRT's) were obtained at 35dB in [...] Pt given a copy of Audiogram: Yes ODUCTION MACHINE LOADER documented in this encounter Plan of Treatment Upcoming Encounters Date Type Department Care Team (Late st Contact Info) Description 04/11/2024 4:30 PM REPRODUCTION MACHINE LOADER Appointment [facility] Radiology [place] [address] [address] Licha Acuna RN, LOCKSTITCH POCKET SETTER [address] [place], [place] [address] documented as of this encounter Procedures Procedure Name Priority Date/Time Associated Diagnosis Comments TYMPANOMETRY Routine 03/21/2024 12:00 AM REPRODUCTION MACHINE LOADER Conductive hearing loss of right ear with unrestricted hearing of left ear COMPREHENSIVE HEARING TEST Routine 03/21/2024 12:00 AM REPRODUCTION MACHINE LOADER Conductive hearing loss of right ear with unrestricted hearing of left ear documented in this encounter Results * COMPREHENSIVE HEARING TEST (03/21/2024 12:00 AM REPRODUCTION MACHINE LOADER) 03/21/2024 [place] AuD EC PROCEDURES Final Re sult * TYMPANOMETRY (03/21/2024 12:00 AM REPRODUCTION MACHINE LOADER) 03/21/2024 [place] AuD EC PROCEDURES Final Re sult documented in this encounter Visit Diagnoses Diagnosis Conductive hearing loss of right ear with unrestricted hearing of left ear- Primary documented in this encounter Care Teams Stitching Machine Setter Relationship Specialty [place] [address] [address] PCP - General Family Medicine 03/28/23 documented as of this encounter
--- OUTSIDE RECORDS SUMMARY | 2024-04-09 20:39 | XMS_ITS | Clinical Summary ---
Author Organization [facility] Address [address] [place] [address]. [place] [address] Care Team Providers Care Remote Sensing Engineer Name Role Phone No Ref-Primary, Physician Primary Care Provider Allergies No known active allergies Medications CITALOPRAM HYDROBROMIDE PO Acti ve trimethoprim-polymy linda b (POLYTRIM) 75902-3.1 UNIT/ML-% ophthalmic solutionIndications :Acute bacterial conjunctivitis of [...] this topic Insurance [employer] Care Teams Remote Sensing Engineer Relationship Specialty Start Date End Date No Ref-Primary, Physician PCP - General 11/24/17
--- OUTSIDE RECORDS SUMMARY | 2024-04-09 20:39 | XMS_ITS | Referral Summary ---
Author Organization [facility] Address [address] [place] [address]. [place] [address] Care Team Providers Care Bridge Saw Operator Name Role Phone No Ref-Primary, Physician Primary Care Provider Allergies No known active allergies Medications CITALOPRAM HYDROBROMIDE PO Acti ve trimethoprim-polymy linda b (POLYTRIM) 51302-0.1 UNIT/ML-% ophthalmic solutionIndications :Acute bacterial conjunctivitis of [...] on file Insurance [employer] Care Teams Bridge Saw Operator Relationship Specialty Start Date End Date No Ref-Primary, Physician PCP - General 11/24/17
--- NOTE | 2024-04-09 21:10 | ED.GENADULT ---
HPI - General Adult General Date Seen: 04/09/24 Chief complaint: Cough Stated complaint: Bronchitis, short of breath, passed out Time Seen by Provider: 04/09/24 20:49 History of Present Illness HPI narrative: 28 yo F without a history of asthma but who is a smoker, presenting to the ER today with cough, shortness of breath, fainting spell per Was seen in the ER yesterday with a 4 day history of cough, body aches, fever. Vital signs included temperature 11.7, pulse 81, oxygen sat 91% room air, blood pressure 119/64. Chest x-ray showed ?no acute or significant findings. PCR was positive for influenza A. Given a prescription for prednisone 20 mg p.o. b.i.d. for 5 days and albuterol inhaler 2 puffs q 4 hours p.r.n.. She returns to the ER today for re-evaluation with worsening symptoms. History is obtained in part from the patient in part from her . They report that she has had ongoing cough, getting worse overnight and throughout the day today. She is having bad spells of cough or she just can not stop. Sometimes she coughs so fiercely that she vomits. This afternoon she tried to get into the bathtub to soak in a warm tub to try to slow down the cough but it only got worse. She vomited once in the bathtub. She got out of the tub and was in the living room and then had another bad coughing spell. She coughs so hard that she vomited and then passed out. She was feeling very short of breath. Her brought her back to the ER She does not recall any chest pain. The saw her faint saw her be unconscious and limb for less than a minute. No seizure activity. No postictal phase. She did not bite her tongue. She has had fevers today. Patient also notes that she had been getting over a ?flu bug, for a week or so prior to getting influenza for 5 days ago. Related Data Previous Rx's ?Medication ?Instructions ?Recorded albuterol sulfate 90 mcg/actuation 2 puff inhalation 6XD PRN 04/08/24 aerosol inhaler shortness of breath or wheezing #6.7 grams prednisone 20 mg tablet 20 mg PO BID #10 tabs 04/08/24 Allergies Allergy/AdvReac Type Severity Reaction Status Date / Time grapefruit Allergy Verified 04/09/24 20:47 [facility] Social History Smoking Status: Never smoker Second hand tobacco smoke exposure: Yes How often do you have a drink containing alcohol: never AUDIT-C Alcohol total score: 0 Non-prescribed substance use: denies use Exam Narrative: Exam Narrative: Constitutional: Appears well-developed and well-nourished. She is awake and alert but very weak. Is able to sit up slowly for lung exam. Says she feels tired and achy. HENT: Head: Atraumatic. Nose: Nose normal. Mouth/Throat: Oral mucosa is clear and moist. no trismus. Pharynx normal. Tonsils symmetric. No tonsillar enlargement, erythema, or exudate. Eyes: Conjunctivae normal. EOM normal. Pupils equal, round, and reactive to light. No scleral icterus. Neck: Normal range of motion. Neck supple. No tracheal deviation present. Endorsing pain in the right lateral cervical paraspinous muscles. No midline pain. Cardiovascular: Normal rate, regular rhythm. No gallop. No friction rub. No murmur heard. Symmetric radial artery pulses Pulmonary/Chest: She is hypoxic on room air with sats at 83%. Respirations are mildly fast but not labored. No retractions or accessory muscle use. She is not really able to breathe in and out for lung exam without coughing. Not moving much air. After DuoNeb she is able to breathe somewhat better but is still fairly tight. After and additional albuterol neb lung sounds are a bit wheezy. Moving better air. With this sats came up to the high 80s on room air. Abdominal: Soft. No distension. No mass. No tenderness. No rebound. No guarding. Musculoskeletal: RUE: Normal range of motion. No tenderness. No deformity LUE: Normal range of motion. No tenderness. No deformity RLE: Normal range of motion. No edema. No tenderness. No deformity LLE: Normal range of motion. No edema. No tenderness. No deformity Lymph: No cervical adenopathy. Neurological: Alert and oriented to person, place, and time. Normal strength. CN II-VII intact. No sensory deficit. GCS eye subscore is 4. GCS verbal subscore is 5. GCS motor subscore is 6. Normal coordination Skin: Skin is warm and dry. No rash noted. No pallor. Normal capillary refill. Psychiatric: Normal mood. Flat affect. Looks worn down. Her and their daughter are at her bedside. Const: Vital Signs, click to edit/add: Vital Signs - 24 hr 04/09/24 20:43 04/09/24 21:26 04/09/24 21:27 Temperature 98.3 F Pulse Rate 85 91 Pulse Rate [Left P ulse Oximeter] 88 Respiratory Rate Blood Pressure 117/71 Blood Pressure [Ri ght Upper Arm] 95/58 L Pulse Oximetry 95 93 94 Oxygen Delivery Me thod Room Air Oxygen Flow Rate 04/09/24 21:30 04/09/24 21:31 04/09/24 21:45 Temperature Pulse Rate 77 81 74 Pulse Rate [Left P ulse Oximeter] Respiratory Rate Blood Pressure 111/62 Blood Pressure [Ri ght Upper Arm] Pulse Oximetry 89 90 99 Oxygen Delivery Me thod Oxygen Flow Rate 04/09/24 21:47 04/09/24 22:02 04/09/24 22:03 Temperature Pulse Rate 88 Pulse Rate [Left P ulse Oximeter] Respiratory Rate Blood Pressure Blood Pressure [Ri ght Upper Arm] Pulse Oximetry 86 L 91 96 Oxygen Delivery Me thod Room Air Nasal Cannula Oxygen Flow Rate 2 04/09/24 22:06 04/09/24 22:15 04/09/24 22:46 Temperature Pulse Rate 77 73 75 Pulse Rate [Left P ulse Oximeter] Respiratory Rate 24 20 Blood Pressure 107/62 Blood Pressure [Ri ght Upper Arm] Pulse Oximetry 93 90 88 Oxygen Delivery Me thod Nasal Cannula Oxygen Flow Rate 3 Course Course ED Course: Recheck-somewhat better after 1st DuoNeb. Less coughing with lung auscultation but still pretty tight Reevaluation(s) Reevaluation #1: Recheck-more wheezy after 2nd neb (albuterol). Suspect she is being it open up Third neb ordered. Reevaluation #2: Recheck-breathing a bit more easily. Minimal wheezing. She does have a few fine rales in her lung eli that I had not initially appreciated. Oxygen sat in the 90s on 3 L nasal cannula. Respirations unlabored. Reevaluation #3: Recheck-updated the patient's all the patient's sleeping. She is finally able to rest. agreeable to plan for hospitalization. Recheck-discussed with Dr. Barnes, who came to the ER to evaluate for admission. Vital Signs Vital signs: Initial Vital Signs Temperature 98.3 F 04/09/24 20:43 Temperature Source Oral 04/09/24 20:43 Pulse Rate 88 04/09/24 20:43 Blood Pressure 95/58 L 04/09/24 20:43 Blood Pressure Mean 70 04/09/24 20:43 Pulse Oximetry 95 04/09/24 20:43 Oxygen Delivery Method Room Air 04/09/24 20:43 Vital Signs Temperature 98.3 F 04/09/24 20:43 Pulse Rate 88 04/09/24 20:43 Blood Pressure 95/58 L 04/09/24 20:43 Pulse Oximetry 95 04/09/24 20:43 Oxygen Delivery Method Room Air 04/09/24 20:43 Temperature 98.3 F 04/09/24 20:43 Pulse Rate 75 04/09/24 22:46 Respiratory Rate 20 04/09/24 22:46 Blood Pressure 107/62 04/09/24 22:46 Pulse Oximetry 88 04/09/24 22:46 Oxygen Delivery Method Nasal Cannula 04/09/24 22:46 Oxygen Flow Rate 3 04/09/24 22:46 Medications Administered Medications: Discontinued Medications Generic Name Dose Route Start Last Admin Trade Name Freq PRN Reason Stop Dose Admin Albuterol 2.5 mg 04/09/24 21:56 04/09/24 22:13 Albuterol Sulfate 2.5 Mg/3 Ml Vial.Neb [facility] 04/09/24 21:57 2.5 mg ONCE ONE Administration Albuterol 2.5 mg 04/09/24 22:28 04/09/24 22:33 Albuterol Sulfate 2.5 Mg/3 Ml Vial.Neb [facility] 04/09/24 22:29 2.5 mg ONCE ONE Administration Albuterol/Ipratropium 1 neb 04/09/24 21:40 04/09/24 21:43 Iprat-Albut 0.5-2.5 Mg/3 Ml Neb 04/09/24 21:41 1 neb ONCE ONE Administration Sodium Chloride 1,000 mls @ 1,000 mls/hr 04/09/24 22:00 04/09/24 22:55 0.9 % Sodium Chloride 1000 Ml IV 04/09/24 22:59 Infused .Q1H STEPHENIE Infusion Doxycycline Hyclate 100 mg/ 100 mls @ 100 mls/hr 04/09/24 22:23 04/09/24 22:53 Sodium Chloride IVPB 04/09/24 22:24 100 mls/hr ONCE ONE Administration Methylprednisolone Sodium Succinate 40 mg 04/09/24 22:28 04/09/24 22:42 Methylprednisolone Sod Succ 40 Mg/Ml IVP 04/09/24 22:29 40 mg ONCE ONE Administration Ondansetron HCl 4 mg 04/09/24 21:55 04/09/24 22:13 Ondansetron 2 Mg/Ml Inj IVP 04/09/24 21:56 4 mg ONCE ONE Administration Oseltamivir Phosphate 75 mg 04/09/24 22:23 04/09/24 22:32 Oseltamivir Phosphate 75 Mg Capsule PO 04/09/24 22:24 75 mg ONCE ONE Administration Medical Decision Making [facility] Narrative Medical decision making narrative: 28-year-old female returning the ER today with worsening cough, chest burning, leading up to an episode of posttussive emesis and syncope this afternoon. Suspect that her syncopal event was probably a vasovagal event from coughing and vomiting however a broad differential was considered. History provided suggests a benign cause of syncope. No murmurs . Initial ECG shows normal sinus rhythm and no dysrhythmogenic abnormality such as WPW, prolonged QT, Brugada syndrome, and no ischemia. No symptoms/findings concerning for cardiac ischemia or ACS . No headache or other neurologic symptoms to suggest subarachnoid , stroke . No reported seizure-like activity or postictal phase. security monitor while the patient here in the ER showed no dysrhythmia or ectopy. Troponin normal. EKG nonischemic Blood sugar normal. Electrolytes reassuring. In terms of her cough, differential here would include ongoing cough from influenza versus other causes. She did have almost incessant cough and poor oxygenation upon arrival. After 3 nebs cough is somewhat improved in aeration is improved but she still is slightly wheezy. She also remains hypoxic with sats in the 80s on room air, up to the 90s on 3 L nasal cannula. At this point she is not having labored respirations, signs of respiratory fatigue and is not displaying signs that she is going to tire out or require BiPAP or endotracheal intubation. Repeat chest x-ray today does show new bilateral infiltrates when compared x-ray from yesterday. Suspect that this is probably a progressing viral/influenza pneumonia. Will start the patient on Tamiflu. However, would be impossible to exclude a superimposed community-acquired bacterial pneumonia over and above her influenza. Therefore will start the patient on antibiotics for community-acquired pneumonia. Doxycycline and Rocephin. CBC shows a low white count suggested viral. Consider possible PE causing syncope. D-dimer is abnormal CT PA. my review of the chest CT is that it is negative for PE but does show bilateral infiltrates, actually more widespread than we had seen on her chest x-ray. Awaiting formal radiology interpretation Discussed with our hospitalist, Dr. Barnes who agrees to admit the patient here, pending results of the CT scan. If the CT is abnormal she will initiate anticoagulation for PE. Lab Data Labs: Lab Results 04/09/24 Range/Units 21:55 WBC 2.85 L (4.50-11.00) K/uL RBC 4.26 (4.00-5.20) m/uL Hgb 12.9 (12.0-16.0) gm/dL Hct 39.6 (33.0-51.0) % MCV 93 (80-100) fL MCH 30 (26-34) pg MCHC 33 (32-36) gm/dL RDW Coeff of Chris 13.0 (11.5-15.5) % Plt Count 155 (140-440) K/uL Neut % (Auto) 77.5 H (42.0-72.0) % Lymph % (Auto) 15.4 L (20-44) % [place] % (Auto) 6.3 (0.0-11.0) % Eos % (Auto) 0.0 (0.0-7.0) % Baso % (Auto) 0.4 (0.0-3.0) % Neut # (Auto) 2.20 (1.7-7.0) K/uL Lymph # (Auto) 0.40 L (0.90-2.90) K/uL [place] # (Auto) 0.20 (0.00-0.90) K/UL Eos # (Auto) 0.00 (0.00-0.50) K/uL Baso # (Auto) 0.00 (0.00-0.30) K/uL Abs Immat Gran (auto) 0.00 (0.00-0.30) K/uL Imm/Tot Granulo (auto) 0.4 % D-Dimer Quant (PE/DVT) 0.82 H (0.00-0.50) ug/ml Sodium 135 (135-149) mmol/L Potassium 4.4 (3.6-5.1) mmol/L Chloride 104 (96-114) mmol/L Carbon Dioxide 25 (20-32) mmol/L Anion Gap 6 L (7-15) mEq/L BUN 9 (5-24) mg/dL Creatinine 0.7 (0.5-1.5) mg/dL Estimated Creat Clear 125.04 Estimated GFR 121 ml/min Glucose 114 (60-115) mg/dL Lactate 1.9 (0.5-1.9) mmol/L Calcium 8.3 L (8.4-10.6) mg/dL Troponin I < 0.01 L (0.01-0.04) ng/mL HCG, Qual Negative (Negative) Imaging Data Chest x-ray: Attestation: I have reviewed the pertinent imaging results. My impression: Bilateral infiltrates, probably perihilar Radiologist's impression: IMPRESSION: Bilateral increased perihilar lung markings, concerning for a multifocal infectious/inflammatory process. ECG Data Attestation: I personally reviewed and interpreted this ECG as follows: Interpretation: Normal sinus rhythm Rate: 65 NH: 154 QRS axis: Normal axis. ST segment/T wave: Nonspecific T-wave flattening in leads V1, V3, V4, V5, V6, 2, AVF QTc: 426 Discharge Plan Discharge Prescriptions: No Action prednisone 20 mg tablet 20 mg PO BID Qty: 10 0RF albuterol sulfate 90 mcg/actuation HFA aerosol inhaler 2 puff inhalation 6XD PRN (Reason: shortness of breath or wheezing) Qty: 6.7 0RF Follow Up/Referrals: Provider,Not a Local [Primary Care Provider] -
--- NOTE | 2024-04-09 21:40 | CRLHL7_ITS ---
For Patients: As a result of the Cures Act, medical imaging exams and procedure reports are released immediately into your electronic medical record. You may view this report before your referring provider. If you have questions, please contact your health care provider. INDICATION: Influenza, worsening shortness of breath. TECHNIQUE: Chest 2 views. COMPARISON: 04/08/2024. FINDINGS: Cardiovascular and mediastinum: Heart size and vasculature are normal in caliber and appearance. Lungs and pleural spaces: Low lung volumes with bronchovascular crowding. Bilateral increased perihilar lung markings. No pleural effusion or pneumothorax Bones and soft tissues: Unremarkable for age. IMPRESSION: Bilateral increased perihilar lung markings, concerning for a multifocal infectious/inflammatory process. Dictated by Mitch Delgado MD @ 04/09/2024 10:15:21 PM (Electronically Signed)
[2024-04-09] MEDS: IPRAT-ALBUT 0.5-2.5 MG/3 ML NEB 1 NEB IH (21:43)
[2024-04-09 22:04] LABS: Basophils Percent Auto 0.4 % (0.0-3.0); Hematocrit 39.6 % (33.0-51.0); Hemoglobin* 12.9 gm/dL (12.0-16.0); Immature Granulocytes Pct Auto 0.4 %; Lactate* 1.9 mmol/L (0.5-1.9); Lymphocytes Percent Auto 15.4 % (20-44); Mean Corpuscular HGB Conc 33 gm/dL (32-36); Mean Corpuscular Hemoglobin 30 pg (26-34); Mean Corpuscular Volume 93 fL (80-100); Monocytes Percent Auto 6.3 % (0.0-11.0); Neutrophils Percent Auto 77.5 % (42.0-72.0); Platelet Count* 155 K/uL (140-440); Red Blood Count 4.26 m/uL (4.00-5.20); White Blood Count* 2.85 K/uL (4.50-11.00)
[2024-04-09 22:07] LABS: Slide Review Reflex No
[2024-04-09] MEDS: 0.9 % SODIUM CHLORIDE 1000 ml 1,000 ML IV (22:10)
--- OUTSIDE RECORDS SUMMARY | 2024-04-09 22:10 | XMS_ITS | Continuity of Care Document ---
Author Organization [facility] Address [address] [place] [address] Phone Care Team Providers Care Application Infrastructure Engineer Name Role Phone Dennis Marsh MD Unavailable [...] Provider Providers Copied on Encounter Office/Outpati ent Visit,[facility], [facility] [place] [place] [facility], [address], [facility] [place], [id number], [place] tel:[phone] [facility] Unspecified kyphosis, cervical regionOther cervical disc degeneration, high cervical region Maximo Collins. [facility], [address], [address], [place] [facility] [place], [id number], [place]. tel:[phone] Referring Provider: Scott Moreno, [facility] [address] [place], [address]. tel:[phone] Family History Family Member Type Diagnosis Age At Onset Sister Problem (finding) Suicide Sister Problem (finding) Depression Sister Problem (finding) Anesthesia reaction Sister Problem (finding) Blood disorder Sister Problem (finding) Scoliosis Father Problem (finding) Hypertension Brother Problem (finding) Suicide Payers Payer name Insurance type Covered libertarian ID Mary Ellen sousa(s) BCBS [place] Blue [place] [id number] Social History Type Description Quantity Date Captured [...]
--- OUTSIDE RECORDS SUMMARY | 2024-04-09 22:11 | XMS_ITS | Encounter Summary ---
Author Organization [facility] Address [address] [address] Phone Care Team Providers Care Watchmaking Teacher Name Role Phone Bang Gibson MD Primary Care Provider [phone] Encounter Details Date Type Department Care Team (Latest Contact Info) Description 03/21/2024 Travel Social History Tobacco Use Types Packs/Day Years Used Date Smoking Tobacco: Never Smokeless Tobacco: Never Alcohol Use Standard Drinks/Week Comments Yes 0 (1 standard drink = 0.6 oz pur e alcohol) Rare [facility] Utilities Answer Date Recorded In the past [...] week 12/13/2021 How often do you attend confucianist or baptism serv ices? Never 12/13/2021 Do you belong to any clubs o r organizations such as confucianist groups, unions, fraternal or athletic groups, or [...] Answer Date Recorded PHQ-2 Total 0 02/17/2024 [facility] of Occupat ional Health - Occupational Stress [...] were you homeless or living in a custodial (including now)? No 08/19/2023 EH IP Custom [...] st Contact Info) Description 04/11/2024 4:30 PM RADIOLOGY PHYSICIAN Appointment [facility] Radiology CT [address] [place] [id number] Licha Acuna, RN, [address] [place] [address] documented as of this encounter Visit Diagnoses Not on filedocumented in this encounter Care Teams Watchmaking Teacher Relationship Specialty [place] [address] [address] PCP - General Family Medicine 03/28/23 documented as of this encounter
--- OUTSIDE RECORDS SUMMARY | 2024-04-09 22:11 | XMS_ITS | Clinical Summary ---
Author Organization [facility] Address [address] [address] Phone Care Team Providers Care Correspondence Coordinator Name Role Phone Bang Gibson MD Primary Care Provider [phone] Allergies Active Allergy Reactions Criticality Noted Date Comments Bupropion Unknown Medium 04/02/2020 [place] numb and increased suicide ideations Grapefruit Concentrate [...] to be around animals. 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 Assessment & [...] Department Care Team Description 03/21/2024 8:00 AM ETHYLENE PLANT HELPER Office Visit [facility] [address] [place] [address] Komal Liriano AuD Conductive hearing loss of right ear with unrestricted hearing of left ear (Primary Dx) 03/21/2024 Travel 02/20/2024 Telephone [facility] [address] [place], [place] [address] Nusrat Kaplan Referral ([facility]) 02/17/2024 1:30 PM ETHYLENE PLANT HELPER Office Visit [facility] [address] [place] [address] Bang Gibson MD Non-recurrent acute suppurative otitis [...] = 0.6 oz pur e alcohol) Rare [facility] Utilities Answer Date Recorded In the past 12 months has e [employer], gas, oil, or water [employer] threatened to shut off services in your [...] week 12/13/2021 How often do you attend congregation or bahai serv ices? Never 12/13/2021 Do you belong to any clubs o r organizations such as congregation groups, unions, fraternal or athletic groups, or [...] Answer Date Recorded PHQ-2 Total 0 02/17/2024 [facility] of Occupat ional Health - Occupational [...] any time in the past 12 m [facility], were you homeless or living in a half-way (including now)? No 08/19/2023 IP [employer] Utilities Answer Date Elijah rded Retired - [...] Comments Blood Pressure 123/78 02/17/2024 1:11 PM ETHYLENE PLANT HELPER Pulse 81 02/17/2024 1:11 PM ETHYLENE PLANT HELPER Temperature 36.8 C (98.2 F) 02/17/2024 1:11 PM ETHYLENE PLANT HELPER Respiratory Rate 14 08/19/2023 11:4 6 AM CDT Oxygen Saturation 99% 02/17/2024 1:11 PM ETHYLENE PLANT HELPER Inhaled Oxygen Concentration - - Weight 102.3 kg (225 lb 8.5 oz) 024 11:46 AM CDT Height 175.3 cm (5' 9) 08/19/2023 11:4 6 AM CDT Body Mass Index 33.31 08/19/2023 11:46 AM CDT Plan of Treatment Upcoming Encounters Date Type Department Care Team (Late st Contact Info) Description 04/11/2024 4:30 PM ETHYLENE PLANT HELPER Appointment [facility] [place] [address] [address] Licha Acuna, RN, ESTATE PLANNING DIRECTOR [facility] [address] [facility] [address] [place] [id number] Health Maintenance Due Date Last Done Comments [...] COMPREHENSIVE HEARING TEST Routine 03/21/2024 12:00 AM ETHYLENE PLANT HELPER Conductive hearing loss of right ear with unrestricted hearing of left ear TYMPANOMETRY Routine 03/21/2024 12:00 AM ETHY[employer]E PLANT HELPER Conductive hearing loss of right ear with unrestricted hearing of left ear PAP, LIQUID BASED Routine 01/06/2022 8:4 9 AM CDT Screening for malignant neoplasm of cervix from Last 3 Months or Most Recently Relevant to Health Maintenance Results * TYMPANOMETRY (03/21/2024 12:00 AM ETHYLENE PLANT HELPER) 03/21/2024 Komal Liriano AuD EC PROCEDURES Final Re sult * COMPREHENSIVE HEARING TEST (03/21/2024 12:00 AM ETHYLENE PLANT HELPER) 03/21/2024 Komal Liriano AuD EC PROCEDURES Final Re sult * PAP, LIQUID BASED (01/06/2022 8:49 AM CDT) Case Report Gynecologic Cytology Report Case: [id number] Authorizing Provider: Tabby Scott DO Collected: 01/06/2022 0849 Ordering Location: [facility] Received: 01/06/2022 0903 Obstetrics/Gyneco logy First Screen: Ernesto Hsu Specimen: LIQUID-BASED PAP, Cervix 01/07/2022 8:27 AM CDT [facility] Gynecologic Cytology Interpretation , SurePath Collection Negative for Intraepithelial Lesion or Malignancy. 01/07/2022 8:27 AM CDT [facility] Other Findings Marked inflammation present. 01/07/2022 8:27 AM CDT [facility] Specimen Adequacy Satisfactory for evaluation, endocervical/trans formation zone component is present. 01/07/2022 8:27 AM CDT [facility] Pap Disclaimer Note: The Pap test is a screening procedure and is not, by itself, diagnostic. False negatives and positives do occur. Correlation with clinical findings, history and a program of regular examinations including Pap tests is warranted to help detect cancers and precursor lesions of the female genital tract. 01/07/2022 8:27 AM CDT [facility] [place] VAGINAL CERVIX / Unknown Non-blood collection / Unknown 01/06/2022 8:49 AM CDT 01/06/2022 9:03 AM CDT Tabby Scott DO EC PATHOLOGY ORDERABLES F inal Result [facility] [address] from Last 3 Months or Most Recently Relevant to Health Maintenance [facility] Care Teams Correspondence Coordinator Relationship Specialty [place] [address] [address] PCP - General Family Medicine 03/28/23
--- OUTSIDE RECORDS SUMMARY | 2024-04-09 22:11 | XMS_ITS | Clinical Summary ---
Author Organization [facility] Address [address] [place] [address]. [place] [address] Care Team Providers Care Construction Cost Estimator Name Role Phone No Ref-Primary, Physician Primary Care Provider Allergies No known active allergies Medications CITALOPRAM HYDROBROMIDE PO Acti ve trimethoprim-polymy linda b (POLYTRIM) 41475-3.1 UNIT/ML-% ophthalmic solutionIndications :Acute bacterial conjunctivitis of [...] this topic Insurance [employer] Care Teams Construction Cost Estimator Relationship Specialty Start Date End Date No Ref-Primary, Physician PCP - General 11/24/17
--- OUTSIDE RECORDS SUMMARY | 2024-04-09 22:11 | XMS_ITS | Referral Summary ---
Author Organization [facility] Address [address] [place] [address]. [place] [address] Care Team Providers Care Personnel Assistant Name Role Phone No Ref-Primary, Physician Primary Care Provider Allergies No known active allergies Medications CITALOPRAM HYDROBROMIDE PO Acti ve trimethoprim-polymy linda b (POLYTRIM) 78472-2.1 UNIT/ML-% ophthalmic solutionIndications :Acute bacterial conjunctivitis of [...] on file Insurance [employer] Care Teams Personnel Assistant Relationship Specialty Start Date End Date No Ref-Primary, Physician PCP - General 11/24/17
--- OUTSIDE RECORDS SUMMARY | 2024-04-09 22:11 | XMS_ITS | Encounter Summary ---
Author Organization [facility] Address [address] [address] Phone Care Team Providers Care Acct Exec Name Role Phone Bang Gibson MD Primary Care Provider [phone] Reason for Visit * Reason Comments Hearing Loss Signs Of Infection * Office Visit (Routine) - New Request Specialty Diagnoses / Procedures Referred By Dariana jefferson Referred To Contact Audiology Diagnoses Non-recurrent acute suppurative otitis media of right ear without spontaneous rupture [place] [address] [address] Phone: tel: fax: Referral ID Status Reason Start Date Expiration Date V isits Requested Visits Authorized [id number] New Request 02/24/2024 02/23/2025 1 1 Encounter Details Date Type Department Care Team ([facility] Contact Info) Description 03/21/2024 8:00 AM MANAGER PERSONAL Office Visit [facility] [address] [place], [place] [address] Komal Liriano, AuD [address] [id number] Conductive hearing loss of right ear with unrestricted hearing of left ear (Primary Dx) Social History Tobacco Use Types Packs/Day Years Used Date Smoking Tobacco: Never Smokeless Tobacco: Never Alcohol Use Standard Drinks/Week Comments Yes 0 (1 standard drink = 0.6 oz pur e alcohol) Rare [facility] Utilities Answer Date Recorded In [...] week 12/13/2021 How often do you attend yazdanism or jainism serv ices? Never 12/13/2021 Do you belong to any clubs o r organizations such as yazdanism groups, unions, fraternal or athletic groups, or [...] Date Recorded PHQ-2 Total 0 02/17/2024 [facility] - Occupational Stress Questionnaire Answer [...] were you homeless or living in a prison (including now)? No 08/19/2023 EH IP Custom [...] normal hearing in the left ear. Speech medical reception thresholds(SRT's) were obtained at 35dB in the [...] Pt given a copy of Audiogram: Yes GER PERSONAL documented in this encounter Plan of Treatment Upcoming Encounters Date Type Department Care Team (Late st Contact Info) Description 04/11/2024 4:30 PM MANAGER PERSONAL Appointment [facility] Radiology [facility] [address] [id number] Licha Acuna RN, NUCLEAR FUELS RESEARCH ENGINEER [address] [place], [place] [address] documented as of this encounter Procedures Procedure Name Priority Date/Time Associated Diagnosis Comments TYMPANOMETRY Routine 03/21/2024 12:00 AM MANAGER PERSONAL Conductive hearing loss of right ear with unrestricted hearing of left ear COMPREHENSIVE HEARING TEST Routine 03/21/2024 12:00 AM MANAGER PERSONAL Conductive hearing loss of right ear with unrestricted hearing of left ear documented in this encounter Results * COMPREHENSIVE HEARING TEST (03/21/2024 12:00 AM MANAGER PERSONAL) 03/21/2024 [place] [facility] Au[facility] EC PROCEDURES Final Re sult * TYMPANOMETRY (03/21/2024 12:00 AM MANAGER PERSONAL) 03/21/2024 [place] AuD EC PROCEDURES Final Re sult documented in this encounter Visit Diagnoses Diagnosis Conductive hearing loss of right ear with unrestricted hearing of left ear- Primary documented in this encounter Care Teams Acct Exec Relationship Specialty [place] [address] [address] PCP - General Family Medicine 03/28/23 documented as of this encounter
--- OUTSIDE RECORDS SUMMARY | 2024-04-09 22:11 | XMS_ITS | Clinical Summary ---
Author Organization [facility] Address [place], [place] [address] Care Team Providers Care Environmental Conservation Professor Name Role Phone Bang Gibson Primary Care Provider Unavaila ble Allergies Active Allergy Reactions Criticality Noted Date Comments Grapefruit Anaphylaxis High 2021 Bupropion Other - Describe In Comment Field Medium 04/02/2020 Tichnor numb and increased suicide ideations Medications cyclobenzaprine [...] Department Care Team Description 02/16/2024 9:20 AM MORTGAGE COLLECTOR Office Visit [facility] [address] [place] [phone] Calvin Howard MD Follow Up (procedure from 01/26 cervical RFA (B) C3.C4,C5 discuss pain.) 02/16/2024 Travel 01/27/2024 2:37 PM MORTGAGE COLLECTOR Anesthesia Event [facility] [address] [place] [address] Maryse Harry CRNA 01/27/2024 2:30 PM MORTGAGE COLLECTOR - 01/27/2024 3:30 PM MORTGAGE COLLECTOR Surgery [facility] [address] [place] [address] Calvin Howard MD Cervical medial branch RFA bilateral C3, C4, C5, wih MAC Anesth, with decadron 10 mg 01/27/2024 1:34 PM MORTGAGE COLLECTOR - 01/27/2024 11:59 PM MORTGAGE COLLECTOR Hospital Encounter [facility] [address], [place] [address] Calvin Howard MD Arthropathy of cervical facet [...] on file Legal Sex Female 5:22 AM MORTGAGE COLLECTOR Gender Identity Not on file Sexual Orientation Not on file 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 Not on file Not on file Not on file Obstetrics History Para Term AB IAB SAB Ectopic Multiple Livin g Live Births 0 0 0 0 0 0 0 0 0 0 Last Filed Vital Signs Vital Sign Reading Time Taken Comments Blood Pressure 110/68 02/16/2024 9:34 AM MORTGAGE COLLECTOR Pulse 66 02/16/2024 9:34 AM MORTGAGE COLLECTOR Temperature 36.7 C (98.1 F) 02/16/2024 9:34 AM MORTGAGE COLLECTOR Respiratory Rate 14 02/16/2024 9:34 AM MORTGAGE COLLECTOR Oxygen Saturation 98% 02/16/2024 9:34 AM MORTGAGE COLLECTOR Inhaled Oxygen Concentration - - Weight 115.7 kg (255 lb) 02/16/2024 9:34 AM MORTGAGE COLLECTOR Height 175.3 cm (5' 9) 02/16/2024 9:34 AM MORTGAGE COLLECTOR Body Mass Index 37.66 02/16/2024 9:34 AM MORTGAGE COLLECTOR Plan of Treatment Health Maintenance Due Date [...] LESS 1 HR Routine 01/27/2024 3:19 PM MORTGAGE COLLECTOR Arthropathy of cervical facet joint RADIOFREQUENCY MEDIAL BRANCH NEUROTOMY 01/27/2024 2:31 PM MORTGAGE COLLECTOR Facet arthropathy, cervical Case Notes Block A, 60 min (DL). 10 cm RFA needles from Last 3 Months Results * XR C-ARM EQUAL OR LESS 1 HR (01/27/2024 3:19 PM MORTGAGE COLLECTOR) Narrative Silent, Sched - 01/27/2024 3:20 PM MORTGAGE COLLECTOR The result for this exam is either scanned and attached to this order or are included in the ordering provider's NOTES from the patient's Office Visit or Surgical procedure from this date. us Calvin Howard MD FLUOROSCOPY Final Resul t from Last 3 Months Insurance [facility] Advance Directives * Full Code (Latest [...] Code Status Discussion: Reviewed Preferences Care Teams Environmental Conservation Professor Relationship Specialty Start Date End Date Bang Gibson PCP - General 05/23/23
[2024-04-09] MEDS: ALBUTEROL SULFATE 2.5 MG/3 ML VIAL.NEB NEB ×2 (22:13→22:33)
[2024-04-09] MEDS: ONDANSETRON 2 MG/ML inj 4 MG IVP (22:13)
[2024-04-09 22:24] LABS: Chloride* 104 mmol/L (96-114); Potassium* 4.4 mmol/L (3.6-5.1); Sodium* 135 mmol/L (135-149)
[2024-04-09 22:27] LABS: Anion Gap 6 mEq/L (7-15); Blood Urea Nitrogen* 9 mg/dL (5-24); Carbon Dioxide* 25 mmol/L (20-32); Creatinine* 0.7 mg/dL (0.5-1.5); Est. Creatinine Clearance* 125.04; Estimated Glomerular Filt Rate 121 ml/min
[2024-04-09 22:28] LABS: Calcium* 8.3 mg/dL (8.4-10.6); Glucose* 114 mg/dL (60-115)
[2024-04-09 22:29] LABS: D Dimer Quantitative* 0.82 ug/ml (0.00-0.50)
[2024-04-09 22:30] LABS: HCG Qualitative Serum* Negative (Negative)
[2024-04-09] MEDS: OSELTAMIVIR PHOSPHATE 75 MG CAPSULE PO (22:32)
[2024-04-09] MEDS: METHYLPREDNISOLONE SOD SUCC 40 MG/ML IVP (22:42)
[2024-04-09] MEDS: DOXYCYCLINE HYCLATE 100 MG in 0.9 % SODIUM CHLORIDE Mini-bag 100 ML IVPB (22:53)
--- NOTE | 2024-04-09 23:20 | CRLHL7_ITS ---
For Patients: As a result of the Century Cures Act, medical imaging exams and procedure reports are released immediately into your electronic medical record. You may view this report before your referring provider. If you have questions, please contact your health care provider. INDICATION: Hypoxia, syncope, influenza A, abnormal D-dimer. History of preventative bilateral mastectomy. TECHNIQUE: CT of the chest acquired with 95 cc Isovue 370 IV contrast according to the PE protocol. Coronal and sagittal reconstructions. COMPARISON: Chest radiograph 04/09/2024. FINDINGS: Cardiovascular structures: Normal heart size. Normal caliber thoracic aorta and central pulmonary arteries. No acute pulmonary embolism identified. Mediastinum and sayda: Mildly prominent mediastinal and bilateral hilar lymph nodes are likely reactive. Small amount of residual thymic tissue in the anterior mediastinum. No pericardial effusion. Lungs and pleura: There are multifocal patchy ground-glass and consolidative opacities throughout both lungs which are likely infectious or inflammatory. Mild diffuse bronchial wall thickening. No pleural effusion or pneumothorax. No central endobronchial lesion. Chest wall: There is an asymmetric nodular soft tissue density in the right upper breast (series 5, image 53). No axillary lymphadenopathy. Upper abdomen: The spleen is enlarged measuring 14.5 cm in length. Remainder unremarkable. Bones: Unremarkable for age. IMPRESSION: 1. Negative for acute pulmonary embolism. 2. Multifocal bilateral patchy ground-glass and consolidative opacities are likely infectious or inflammatory. 3. Mildly prominent mediastinal and bilateral hilar lymph nodes are likely reactive. 4. Asymmetric nodular soft tissue density in the right upper breast. Correlate with mammogram. Please note that all CT scans at this facility use dose modulation, iterative reconstruction, and/or weight-based dosing when appropriate to reduce radiation dose to as low as reasonably achievable. Dictated by Rebecca Fulton MD @ 04/10/2024 12:32:21 AM (Electronically Signed)
[2024-04-09 23:39] LABS: Troponin I* < 0.01 ng/mL (0.01-0.04)
[2024-04-10] VITALS (13 sets, daily range): BP systolic 105–115; BP diastolic 59–74; PULSE 58–85; RESP 16–24; TEMP 36.8–37.7; O2SAT 90–93; BMI 36.9
[2024-04-10] MEDS: cefTRIAXone 1 GM in 0.9 % SODIUM CHLORIDE Mini-bag 100 ML IVPB (00:39)
--- NOTE | 2024-04-10 00:51 | PM.IMHP1 ---
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 She tells me she's been sick for a few weeks because she first got the ?stomach bug? that was going around work and then she started coughing a few days ago. With the cough she also developed body aches, fever, and a return of nausea, vomiting and diarrhea. She denies chest pain, hemoptysis, hematochezia, hematemesis, or melena. She tells me she has been coughing so hard that she sometimes vomits and today she was coughing so hard that she passed out. She was seen in the ER yesterday for her symptoms and was started on prednisone and an albuterol inhaler. She took a dose of prednisone last night and again this morning. She has chronic neck pain for which she takes gabapentin 3 times a day and Flexeril for bed. Review of Systems Status of ROS: Reports: 10 or more systems reviewed and unremarkable except as noted in History and below [facility] Medical History (Updated 04/10/24 @ 01:11 by Ada Barnes MD) Chronic neck pain ?M54.2 - Cervicalgia (ICD-10) ?G89.29 - Other chronic pain (ICD-10) Surgical History (Updated 04/10/24 @ 01:01 by Ada Barnes MD) H/O neck surgery ?Z98.890 - Other specified postprocedural states (ICD-10) H/O bilateral mastectomy ?Z90.13 - Acquired absence of bilateral breasts and nipples (ICD-10) Family History (Updated 04/10/24 @ 01:01 by Ada Barnes MD) Other Breast cancer Social History (Updated 04/10/24 @ 01:03 by Ada Barnes MD) Narrative: , her , Faby, and their 8month old daughter were with her. 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 Lifelong nonsmoker, but lives with her father who smokes heavily. Denies alcohol or recreational drug use. Smoking Status: Never smoker Second hand tobacco smoke exposure: Yes How often do you have a drink containing alcohol: never AUDIT-C Alcohol total score: 0 Non-prescribed substance use: denies use Meds Home Medications and Allergies Home Medications ?Medication ?Instructions ?Recorded ?Confirmed ?Type ciprofloxacin 0.3 %-dexamethasone 4 drp Otic (ear-right) BID 04/10/24 04/10/24 History 0.1 % ear drops,suspension citalopram 40 mg tablet 40 mg PO DAILY 04/10/24 04/10/24 History cyclobenzaprine 10 mg tablet 20 mg PO HS PRN neck pain 04/10/24 04/10/24 History gabapentin 300 mg capsule 300 mg PO 3XD 04/10/24 04/10/24 History propranolol 60 mg capsule,24 60 mg PO DAILY 04/10/24 04/10/24 History hr,extended release Allergies Allergy/AdvReac Type Severity Reaction Status Date / Time grapefruit Allergy Verified 04/09/24 20:47 Exam Narrative: Exam Narrative: General: No acute distress. Awake alert oriented x3. Lying comfortably on the gurney. HEENT: Normocephalic atraumatic, pupils equally round and reactive to light and accommodation. Oropharynx clear. Mucous membranes are moist. Cardiovascular: Regular rate and rhythm. No murmurs, gallops, or rubs. Chest: No increased work of breathing. Some air movement, course, no wheezes or crackles. Abdomen: Bowel sounds present. Soft, nondistended, nontender. No hepatosplenomegaly or masses. Extremities: No edema, no cyanosis or clubbing. Skin: No jaundice, no pallor, no rashes on visible skin. Const: Vital Signs, click to edit/add: Vital Signs - 24 hr 04/09/24 20:43 04/09/24 21:26 04/09/24 21:27 Temperature 98.3 F Pulse Rate 85 91 Pulse Rate [Left P ulse Oximeter] 88 Respiratory Rate Blood Pressure 117/71 Blood Pressure [Ri ght Upper Arm] 95/58 L Pulse Oximetry 95 93 94 Oxygen Delivery Me thod Room Air Oxygen Flow Rate 04/09/24 21:30 04/09/24 21:31 04/09/24 21:45 Temperature Pulse Rate 77 81 74 Pulse Rate [Left P ulse Oximeter] Respiratory Rate Blood Pressure 111/62 Blood Pressure [Ri ght Upper Arm] Pulse Oximetry 89 90 99 Oxygen Delivery Me thod Oxygen Flow Rate 04/09/24 21:47 04/09/24 22:02 04/09/24 22:03 Temperature Pulse Rate 88 Pulse Rate [Left P ulse Oximeter] Respiratory Rate Blood Pressure Blood Pressure [Ri ght Upper Arm] Pulse Oximetry 86 L 91 96 Oxygen Delivery Me thod Room Air Nasal Cannula Oxygen Flow Rate 2 04/09/24 22:06 04/09/24 22:15 04/09/24 22:46 Temperature Pulse Rate 77 73 75 Pulse Rate [Left P ulse Oximeter] Respiratory Rate 24 20 Blood Pressure 107/62 Blood Pressure [Ri ght Upper Arm] Pulse Oximetry 93 90 88 Oxygen Delivery Me thod Nasal Cannula Oxygen Flow Rate 3 Hospitalist - H&P: Result Labs Labs: Short CBC 04/09/24 Range/Units 21:55 WBC 2.85 L (4.50-11.00) K/uL Hgb 12.9 (12.0-16.0) gm/dL Hct 39.6 (33.0-51.0) % Plt Count 155 (140-440) K/uL BMP 04/09/24 21:55 Sodium 135 Potassium 4.4 Chloride 104 Carbon Dioxide 25 BUN 9 Creatinine 0.7 Glucose 114 Calcium 8.3 L Cardiac Enzymes 04/09/24 Range/Units 21:55 Troponin I < 0.01 L (0.01-0.04) ng/mL 04/09/2024 EKG: Normal sinus rhythm with sinus arrhythmia, 65 beats per minute, nonspecific T-wave abnormality. Ordering Physician: Mitch Harry M.D. Date of Service: 04/09/24 Procedure(s): XR chest 2V Accession Number(s): [id number] cc: Mitch Harry M.D.; Provider,Not a Local~ For Patients: As a result of the 21st Century Cures Act, medical imaging exams and procedure reports are released immediately into your electronic medical record. You may view this report before your referring provider. If you have questions, please contact your health care provider. INDICATION: Influenza, worsening shortness of breath. TECHNIQUE: Chest 2 views. COMPARISON: 04/08/2024. FINDINGS: Cardiovascular and mediastinum: Heart size and vasculature are normal in caliber and appearance. Lungs and pleural spaces: Low lung volumes with bronchovascular crowding. Bilateral increased perihilar lung markings. No pleural effusion or pneumothorax Bones and soft tissues: Unremarkable for age. IMPRESSION: Bilateral increased perihilar lung markings, concerning for a multifocal infectious/inflammatory process. Dictated by Mitch Delgado MD @ 04/09/2024 10:15:21 PM (Electronically Signed) Ordering Physician: Mitch Harry M.D. Date of Service: 04/09/24 Procedure(s): CT angio chest PE protocol Accession Number(s): [id number] cc: Mitch Harry M.D.; Provider,Not a Local~ For Patients: As a result of the Cures Act, medical imaging exams and procedure reports are released immediately into your electronic medical record. You may view this report before your referring provider. If you have questions, please contact your health care provider. INDICATION: Hypoxia, syncope, influenza A, abnormal D-dimer. History of preventative bilateral mastectomy. TECHNIQUE: CT of the chest acquired with 95 cc Isovue 370 IV contrast according to the PE protocol. Coronal and sagittal reconstructions. COMPARISON: Chest radiograph 04/09/2024. FINDINGS: Cardiovascular structures: Normal heart size. Normal caliber thoracic aorta and central pulmonary arteries. No acute pulmonary embolism identified. Mediastinum and sayda: Mildly prominent mediastinal and bilateral hilar lymph nodes are likely reactive. Small amount of residual thymic tissue in the anterior mediastinum. No pericardial effusion. Lungs and pleura: There are multifocal patchy ground-glass and consolidative opacities throughout both lungs which are likely infectious or inflammatory. Mild diffuse bronchial wall thickening. No pleural effusion or pneumothorax. No central endobronchial lesion. Chest wall: There is an asymmetric nodular soft tissue density in the right upper breast (series 5, image 53). No axillary lymphadenopathy. Upper abdomen: The spleen is enlarged measuring 14.5 cm in length. Remainder unremarkable. Bones: Unremarkable for age. IMPRESSION: 1. Negative for acute pulmonary embolism. 2. Multifocal bilateral patchy ground-glass and consolidative opacities are likely infectious or inflammatory. 3. Mildly prominent mediastinal and bilateral hilar lymph nodes are likely reactive. 4. Asymmetric nodular soft tissue density in the right upper breast. Correlate with mammogram. Please note that all CT scans at this facility use dose modulation, iterative reconstruction, and/or weight-based dosing when appropriate to reduce radiation dose to as low as reasonably achievable. Dictated by Rebecca Fulton MD @ 04/10/2024 12:32:21 AM (Electronically Signed) Assessment and Plan Assessment and plan (1) Acute hypoxic respiratory failure: Problem comment: - multifactorial due to influenza, pneumonia, bronchospasm - admit for observation and supplemental oxygen Status: Acute (2) Influenza A: Problem comment: - due to severity of illness, Tamiflu was started in the emergency department, which I will continue - I have added ondansetron for antiemetic Status: Acute (3) Pneumonia: Problem comment: - unclear if this is viral from influenza or bacterial. White count is low with neutrophil percentage somewhat elevated. Since she was significantly hypoxic, will treat for bacterial pneumonia with ceftriaxone and doxycycline in addition to treating for influenza. Status: Acute (4) Acute bronchospasm: Problem comment: - patient has a history of what sounds like reactive airway disease or recurrent bronchitis, but no formal diagnosis of such or of asthma. Continue prednisone that was started yesterday. P.r.n. nebs. Respiratory consult. Status: Acute (5) Lump of breast, right: Problem comment: Seen on CT. Strong family history of breast cancer per patient report. Will need outpatient follow-up with mammography. Status: Acute (6) Chronic neck pain: Problem comment: Continue gabapentin and nightly p.r.n. Flexeril Status: Chronic
[2024-04-10] MEDS: predniSONE 20 MG TABLET PO (01:40)
[2024-04-10] MEDS: GABAPENTIN 300 MG CAPSULE PO ×4 (01:40→20:46)
[2024-04-10] MEDS: ACETAMINOPHEN 325 MG TABLET 975 MG PO (01:40)
[2024-04-10] MEDS: CYCLOBENZAPRINE HCL 10 MG TABLET 20 MG PO ×2 (01:40→20:46)
[2024-04-10] MEDS: guaiFENesin 100 MG/ML CUP PO (03:17)
--- NOTE | 2024-04-10 06:16 | PC.NURSE ---
Patient arrived to the unit at 0043. Requiring 3Lt NC to maintain O2>90%. Intermittent productive cough. Afebrile. SOB w/activity. Rates chronic neck pain 5-10/14. Scheduled and PRN medications for pain relief.
--- NOTE | 2024-04-10 08:27 | P.IMPN_ITS ---
Progress Note: A&P Assessment and plan (1) Acute hypoxic respiratory failure: Problem details: - multifactorial due to influenza, pneumonia, bronchospasm - admit for observation and supplemental oxygen Status: Acute (2) Influenza A: Problem details: - due to severity of illness, Tamiflu was started in the emergency department, which I will continue - I have added ondansetron for antiemetic Status: Acute (3) Pneumonia: Problem details: - unclear if this is viral from influenza or bacterial. mild neutropenia. Since she was significantly hypoxic, will treat for bacterial pneumonia with ceftriaxone and doxycycline, with prednisone in addition to treating for influenza. appreciate RT support Status: Acute (4) Lump of breast, right: Problem details: palpated on exam. Seen on CT. Strong family history of breast cancer per patient report. Will need outpatient follow-up with mammography/us. u/s not covered while inpatient. Status: Acute (5) Chronic neck pain: Problem details: Continue gabapentin and nightly p.r.n. Flexeril ANEURYSMAL BONE CYST listed in EPIC with several procedures for injections and surgery, pain management. not on opioids. Status: Chronic Subjective Date Seen: 04/10/24 Interval history: Daily Progress Note - Hospital Medicine Day #: 2 CC: b/l pna, flu a, hypoxic respiratory failure 24 HOUR UPDATE: Patient arrived to the unit at 0043. Requiring 3Lt NC to maintain O2>90%. Intermittent productive cough. Afebrile. SOB w/activity. Rates chronic neck pain 5-8/10. Scheduled and PRN medications for pain relief. Notable Labs, Micro, Rads, Interventions: T-max overnight was 99.8. Blood pressure is normal at 115/70. Pulse rate 60s, respiratory rate 16 and unlabored. Pulse ox is 93% on 2 L per nasal cannula oxygen. CBC did note a mild neutropenia with ANC at 1580. pH is normal. no pCO2 elevation. normal electrolytes and renal function CRP 2.4 on admission, 3.1 today. procalcitonin is normal. reviewed CTA 1. Negative for acute pulmonary embolism. 2. Multifocal bilateral patchy ground-glass and consolidative opacities are likely infectious or inflammatory. 3. Mildly prominent mediastinal and bilateral hilar lymph nodes are likely reactive. 4. Asymmetric nodular soft tissue density in the right upper breast. Objective: tired; ill - not septic. not anxious. Vitals: see above Lungs: crackles and rhonchi. no significant wheezing. coughing; mild resp distress. Cardiac: S1S2. chest wall: small soft, non-adhered almond shaped density palpated at the 11-12 o'clock position in the upper right breast. I identify breast reduction surgical scars: nipple/aerola complex present; unclear what breast tissue remains vs subq fat and muscle. Disposition/Potential discharge - home in 1-2 days Today I spent 50minutes seeing the patient, reviewing [facility] and EPIC notes/diagnostics, discussing the care plan with our care time that includes social work, PT/OT, pharmacy, RT, senior care and documenting my impressions and plan in the medical record. Exam Const: Vital Signs, click to edit/add: Vital Signs - 24 hr 04/09/24 20:43 04/09/24 21:26 04/09/24 21:27 Temperature 98.3 F Pulse Rate 85 91 Pulse Rate [Left P ulse Oximeter] 88 Pulse Rate [Pulse Oximeter] Respiratory Rate Blood Pressure 117/71 Blood Pressure [Le ft Arm] Blood Pressure [Ri ght Arm] Blood Pressure [Ri ght Upper Arm] 95/58 L Pulse Oximetry 95 93 94 Oxygen Delivery Me thod Room Air Oxygen Flow Rate 04/09/24 21:30 04/09/24 21:31 04/09/24 21:45 Temperature Pulse Rate 77 81 74 Pulse Rate [Left P ulse Oximeter] Pulse Rate [Pulse Oximeter] Respiratory Rate Blood Pressure 111/62 Blood Pressure [Le ft Arm] Blood Pressure [Ri ght Arm] Blood Pressure [Ri ght Upper Arm] Pulse Oximetry 89 90 99 Oxygen Delivery Me thod Oxygen Flow Rate 04/09/24 21:47 04/09/24 22:02 04/09/24 22:03 Temperature Pulse Rate 88 Pulse Rate [Left P ulse Oximeter] Pulse Rate [Pulse Oximeter] Respiratory Rate Blood Pressure Blood Pressure [Le ft Arm] Blood Pressure [Ri ght Arm] Blood Pressure [Ri ght Upper Arm] Pulse Oximetry 86 L 91 96 Oxygen Delivery Me thod Room Air Nasal Cannula Oxygen Flow Rate 2 04/09/24 22:06 04/09/24 22:15 04/09/24 22:46 Temperature Pulse Rate 77 73 75 Pulse Rate [Left P ulse Oximeter] Pulse Rate [Pulse Oximeter] Respiratory Rate 24 20 Blood Pressure 107/62 Blood Pressure [Le ft Arm] Blood Pressure [Ri ght Arm] Blood Pressure [Ri ght Upper Arm] Pulse Oximetry 93 90 88 Oxygen Delivery Me thod Nasal Cannula Oxygen Flow Rate 3 04/10/24 00:30 04/10/24 01:02 04/10/24 01:15 Temperature 98.3 F 98.3 F Pulse Rate Pulse Rate [Left P ulse Oximeter] 85 85 Pulse Rate [Pulse Oximeter] Respiratory Rate 20 20 22 Blood Pressure Blood Pressure [Le ft Arm] Blood Pressure [Ri ght Arm] Blood Pressure [Ri ght Upper Arm] 110/74 110/74 Pulse Oximetry 92 92 Oxygen Delivery Me thod Nasal Cannula Nasal Cannula Oxygen Flow Rate 3 3 04/10/24 01:19 04/10/24 01:51 04/10/24 03:17 Temperature 99.8 F H 99.1 F Pulse Rate Pulse Rate [Left P ulse Oximeter] Pulse Rate [Pulse Oximeter] 73 72 Respiratory Rate 24 22 Blood Pressure Blood Pressure [Le ft Arm] Blood Pressure [Ri ght Arm] 113/63 108/59 L Blood Pressure [Ri ght Upper Arm] Pulse Oximetry 92 92 92 Oxygen Delivery Me thod Nasal Cannula Nasal Cannula Oxygen Flow Rate 3 3 04/10/24 08:11 04/10/24 08:11 04/10/24 08:11 Temperature 98.4 F Pulse Rate Pulse Rate [Left P ulse Oximeter] Pulse Rate [Pulse Oximeter] 61 Respiratory Rate 16 16 Blood Pressure Blood Pressure [Le ft Arm] 115/70 Blood Pressure [Ri ght Arm] Blood Pressure [Ri ght Upper Arm] Pulse Oximetry 93 93 93 Oxygen Delivery Me thod Nasal Cannula Nasal Cannula Oxygen Flow Rate 2 2 Labs Labs: Laboratory Results - last 24 hr 04/09/24 21:55 WBC 2.85 L RBC 4.26 Hgb 12.9 Hct 39.6 MCV 93 MCH 30 MCHC 33 RDW Coeff of Chris 13.0 Plt Count 155 Neut % (Auto) 77.5 H Lymph % (Auto) 15.[address] % (Auto) 6.3 Eos % (Auto) 0.0 Baso % (Auto) 0.4 Neut # (Auto) 2.20 Lymph # (Auto) 0.[address] # (Auto) 0.20 Eos # (Auto) 0.00 Baso # (Auto) 0.00 Abs Immat Gran (auto) 0.00 Imm/Tot Granulo (auto) 0.4 D-Dimer Quant (PE/DVT) 0.82 H Sodium 135 Potassium 4.4 Chloride 104 Carbon Dioxide 25 Anion Gap 6 L BUN 9 Creatinine 0.7 Estimated Creat Clear 125.04 Estimated GFR 121 Glucose 114 Lactate 1.9 Calcium 8.3 L Troponin I < 0.01 L HCG, Qual Negative
[2024-04-10 09:06] LABS: HCO3 VBG 29 mmol/L (21-28); Lactate* 1.3 mmol/L (0.5-1.9); PCO2 VBG 49 mmHG (40-50); pH VBG 7.376 (7.32-7.43)
[2024-04-10] MEDS: OSELTAMIVIR PHOSPHATE 75 MG CAPSULE PO ×2 (09:11→20:46)
[2024-04-10 09:12] LABS: Hematocrit 37.3 % (33.0-51.0); Hemoglobin* 12.1 gm/dL (12.0-16.0); Immature Granulocytes Pct Auto 0.4 %; Lymphocytes Percent Auto 28.6 % (20-44); Mean Corpuscular HGB Conc 32 gm/dL (32-36); Mean Corpuscular Hemoglobin 30 pg (26-34); Mean Corpuscular Volume 93 fL (80-100); Monocytes Percent Auto 3.4 % (0.0-11.0); Neutrophils Percent Auto 67.6 % (42.0-72.0); Platelet Count* 161 K/uL (140-440); RDW Coefficient of Variation % 13.1 % (11.5-15.5); White Blood Count* 2.34 K/uL (4.50-11.00)
[2024-04-10] MEDS: predniSONE 20 MG TABLET 40 MG PO (09:12)
[2024-04-10] MEDS: DOXYCYCLINE HYCLATE 100 MG PO ×2 (09:12→20:46)
[2024-04-10] MEDS: CITALOPRAM HYDROBROMIDE 20 MG TABLET 40 MG PO (09:13)
[2024-04-10 09:18] LABS: Slide Review Reflex No
[2024-04-10 09:29] LABS: Albumin* 3.7 g/dL (3.3-5.0); Chloride* 104 mmol/L (96-114)
[2024-04-10 09:30] LABS: Sodium* 140 mmol/L (135-149)
[2024-04-10 09:32] LABS: Bilirubin Total* 0.1 mg/dL (0.1-1.5); Creatinine* 0.6 mg/dL (0.5-1.5); Est. Creatinine Clearance* 145.89; Estimated Glomerular Filt Rate 125 ml/min
[2024-04-10 09:33] LABS: Alanine Aminotransferase* 38 U/L (4-35); Alkaline Phosphatase* 55 U/L (40-150); Anion Gap 8 mEq/L (7-15); Aspartate Amino Transferase* 48 U/L (12-35); Blood Urea Nitrogen* 6 mg/dL (5-24); Carbon Dioxide* 28 mmol/L (20-32); Glucose* 136 mg/dL (60-115); Total Protein* 6.1 g/dL (6.0-8.3)
[2024-04-10 09:34] LABS: Calcium* 8.1 mg/dL (8.4-10.6)
[2024-04-10 09:35] LABS: C Reactive Protein* 2.4 mg/dL (0.5-1.0)
[2024-04-10 09:36] LABS: C Reactive Protein* 3.1 mg/dL (0.5-1.0)
[2024-04-10 09:49] LABS: Procalcitonin* 0.06 ng/mL (<0.50)
[2024-04-10 09:49] LABS: Procalcitonin* 0.06 ng/mL (<0.50)
[2024-04-10] MEDS: SODIUM CHLORIDE 0.9 % (FLUSH) 10 ML SYRINGE 5 ML IVF ×2 (09:58→20:47)
[2024-04-10] MEDS: IPRAT-ALBUT 0.5-2.5 MG/3 ML NEB 1 NEB IH ×4 (09:58→23:55)
--- NOTE | 2024-04-10 13:29 | RESP.RT ---
Pt seen, BBS with good aeration, scattered Rhonchi and crackles. Pt using aerobika, states it seems to be helping. Pt without questions at this time. Pt may benefit from out pt PFTs.
[2024-04-10] MEDS: CIPROFLOX/DEXAMETH OTIC (nc) 4 DROP EAR-RIGHT (20:51)
[2024-04-11] VITALS (12 sets, daily range): BP systolic 106–128; BP diastolic 63–90; PULSE 50–65; RESP 16–18; TEMP 36.8–37; O2SAT 1–95
[2024-04-11] MEDS: cefTRIAXone 1 GM in 0.9 % SODIUM CHLORIDE Mini-bag 100 ML IVPB (00:02)
[2024-04-11] MEDS: 0.9 % SODIUM CHLORIDE 250 ml IV (00:02)
[2024-04-11] MEDS: SODIUM CHLORIDE 0.9 % (FLUSH) 10 ML SYRINGE 5 ML IVF ×3 (00:04→20:12)
[2024-04-11] MEDS: IPRAT-ALBUT 0.5-2.5 MG/3 ML NEB 1 NEB IH ×5 (04:02→23:18)
--- NOTE | 2024-04-11 06:16 | PC.NURSE ---
End of shift note [id number]: Pt A&Ox 4 and able to make needs known. She transfers/ambulates independently in room and has been continent of bladder. Pt has been afebrile and on oxygen 2-3 LPM per NC throughout the shift in order to maintain sats >90%. Pt bradycardic at times though asymptomatic. PRN and scheduled pain medications administered for chronic neck pain with pt denying pain when asked for the remainder of the shift. Scheduled neb txs administered per order. Pt has had no N/V or CP throughout the shift. She is tolerating regular diet. IV to R AC patent and SL. Call light within reach.
[2024-04-11 06:41] LABS: Hematocrit 37.1 % (33.0-51.0); Hemoglobin* 11.9 gm/dL (12.0-16.0); Immature Granulocytes Pct Auto 0.3 %; Lymphocytes Percent Auto 42.2 % (20-44); Mean Corpuscular HGB Conc 32 gm/dL (32-36); Mean Corpuscular Hemoglobin 31 pg (26-34); Mean Corpuscular Volume 95 fL (80-100); Monocytes Percent Auto 10.8 % (0.0-11.0); Neutrophils Percent Auto 46.7 % (42.0-72.0); Platelet Count* 156 K/uL (140-440); RDW Coefficient of Variation % 13.4 % (11.5-15.5); White Blood Count* 3.44 K/uL (4.50-11.00)
[2024-04-11 06:51] LABS: Albumin* 3.4 g/dL (3.3-5.0); Chloride* 105 mmol/L (96-114)
[2024-04-11 06:52] LABS: Potassium* 3.9 mmol/L (3.6-5.1); Sodium* 140 mmol/L (135-149)
[2024-04-11 06:54] LABS: Anion Gap 5 mEq/L (7-15); Aspartate Amino Transferase* 53 U/L (12-35); Bilirubin Direct* 0.2 mg/dL (0.0-0.5); Bilirubin Total* 0.2 mg/dL (0.1-1.5); Carbon Dioxide* 30 mmol/L (20-32); Creatinine* 0.7 mg/dL (0.5-1.5); Est. Creatinine Clearance* 125.04; Estimated Glomerular Filt Rate 121 ml/min; Total Protein* 5.8 g/dL (6.0-8.3)
[2024-04-11 06:55] LABS: Alanine Aminotransferase* 41 U/L (4-35); Alkaline Phosphatase* 51 U/L (40-150); Blood Urea Nitrogen* 13 mg/dL (5-24); Calcium* 8.2 mg/dL (8.4-10.6); Glucose* 105 mg/dL (60-115)
[2024-04-11 06:57] LABS: C Reactive Protein* 1.6 mg/dL (0.5-1.0)
[2024-04-11 07:53] LABS: Slide Review Acceptable Review (Acceptable); Slide Review Reflex Yes
[2024-04-11] MEDS: predniSONE 20 MG TABLET 40 MG PO (09:28)
[2024-04-11] MEDS: CIPROFLOX/DEXAMETH OTIC (nc) 4 DROP EAR-RIGHT ×2 (09:28→20:11)
[2024-04-11] MEDS: CITALOPRAM HYDROBROMIDE 20 MG TABLET 40 MG PO (09:29)
[2024-04-11] MEDS: DOXYCYCLINE HYCLATE 100 MG PO ×2 (09:29→20:11)
[2024-04-11] MEDS: GABAPENTIN 300 MG CAPSULE PO ×3 (09:29→20:11)
[2024-04-11] MEDS: OSELTAMIVIR PHOSPHATE 75 MG CAPSULE PO ×2 (09:29→20:11)
--- NOTE | 2024-04-11 13:14 | P.IMPN_ITS ---
Progress Note: A&P Assessment and plan (1) Acute hypoxic respiratory failure: Problem details: - multifactorial due to influenza, pneumonia, bronchospasm - admit for observation and supplemental oxygen Status: Acute (2) Influenza A: Problem details: - due to severity of illness, Tamiflu was started in the emergency department, which I will continue - I have added ondansetron for antiemetic Status: Acute (3) Pneumonia: Problem details: - unclear if this is viral from influenza or bacterial. mild neutropenia. s/p ceftriaxone; continue oral doxy; s/p burst of steroids and prednisone at 40mg; will discontinue. - appreciate RT support Status: Acute (4) Lump of breast, right: Problem details: palpated on exam. Seen on CT. Strong family history of breast cancer per patient report. Will need outpatient follow-up with mammography/us. u/s not covered while inpatient. Status: Acute (5) Chronic neck pain: Problem details: Continue gabapentin and nightly p.r.n. Flexeril ANEURYSMAL BONE CYST listed in EPIC with several procedures for injections and surgery, pain management. not on opioids. Status: Deleted Subjective Date Seen: 04/11/24 Interval history: Daily Progress Note - Hospital Medicine Day #: 3 CC: b/l pna, flu a, hypoxic respiratory failure 24 HOUR UPDATE: Much better today; weaned to room air - still coughing CBC reflects up trending WBC to near normal ranges. Electrolytes are normal. CRP is down trending. Mild transaminitis is still noted. Blood cultures negative to date reviewed CTA from admission 1. Negative for acute pulmonary embolism. 2. Multifocal bilateral patchy ground-glass and consolidative opacities are likely infectious or inflammatory. 3. Mildly prominent mediastinal and bilateral hilar lymph nodes are likely reactive. 4. Asymmetric nodular soft tissue density in the right upper breast. Objective: looks brighter this morning Vitals: see above Lungs: Scattered rhonchi. no significant wheezing. coughing; Cardiac: S1S2. chest wall: small soft, non-adhered almond shaped density palpated at the 11-12 o'clock position in the upper right breast. I identify breast reduction surgical scars: nipple/aerola complex present; unclear what breast tissue remains vs subq fat and muscle. Disposition/Potential discharge - Home in 24 hour Today I spent 50minutes seeing the patient, reviewing [facility] and [facility] notes/diagnostics, discussing the care plan with our care time that includes social work, PT/OT, pharmacy, RT, group home and documenting my impressions and plan in the medical record. Exam Const: Vital Signs, click to edit/add: Vital Signs - 24 hr 04/10/24 16:17 04/10/24 16:17 04/10/24 16:17 Temperature 98.9 F Pulse Rate [Pulse Oximeter] 63 Respiratory Rate 16 16 Blood Pressure [Le ft Arm] 114/66 Blood Pressure [Ri ght Arm] Pulse Oximetry 92 92 92 Oxygen Delivery Me thod Nasal Cannula Nasal Cannula Oxygen Flow Rate 2 2 04/10/24 20:01 04/10/24 22:58 04/10/24 22:58 Temperature 98.8 F Pulse Rate [Pulse Oximeter] 64 Respiratory Rate 16 18 Blood Pressure [Le ft Arm] 111/63 Blood Pressure [Ri ght Arm] Pulse Oximetry 91 90 90 Oxygen Delivery Me thod Nasal Cannula Nasal Cannula Oxygen Flow Rate 2 3 04/10/24 22:59 04/10/24 23:55 04/11/24 03:55 Temperature 98.6 F 98.6 F Pulse Rate [Pulse Oximeter] 64 65 65 Respiratory Rate 18 18 16 Blood Pressure [Le ft Arm] 106/60 109/63 Blood Pressure [Ri ght Arm] Pulse Oximetry 91 94 Oxygen Delivery Me thod Nasal Cannula Nasal Cannula Oxygen Flow Rate 3 2.5 04/11/24 07:00 04/11/24 07:00 04/11/24 07:00 Temperature 98.6 F Pulse Rate [Pulse Oximeter] 51 L Respiratory Rate 18 16 Blood Pressure [Le ft Arm] Blood Pressure [Ri ght Arm] 107/67 Pulse Oximetry 2 L 91 95 Oxygen Delivery Me thod Nasal Cannula Nasal Cannula Oxygen Flow Rate 2 04/11/24 09:00 04/11/24 10:00 04/11/24 11:00 Temperature 98.5 F Pulse Rate [Pulse Oximeter] 55 L Respiratory Rate 16 18 Blood Pressure [Le ft Arm] Blood Pressure [Ri ght Arm] 106/68 Pulse Oximetry 1 L 95 90 Oxygen Delivery Me thod Nasal Cannula Room Air Room Air Oxygen Flow Rate 97 04/11/24 11:52 Temperature Pulse Rate [Pulse Oximeter] Respiratory Rate 16 Blood Pressure [Le ft Arm] Blood Pressure [Ri ght Arm] Pulse Oximetry 95 Oxygen Delivery Me thod Room Air Oxygen Flow Rate Labs Labs: Laboratory Results - last 24 hr 04/11/24 06:00 WBC 3.44 L RBC 3.90 L Hgb 11.9 L Hct 37.1 MCV 95 MCH 31 MCHC 32 RDW Coeff of Chris 13.4 Plt Count 156 Neut % (Auto) 46.7 Lymph % (Auto) 42.2 [place] % (Auto) 10.8 Eos % (Auto) 0.0 Baso % (Auto) 0.0 Neut # (Auto) 1.60 L Lymph # (Auto) 1.50 [place] # (Auto) 0.40 Eos # (Auto) 0.00 Baso # (Auto) 0.00 Abs Immat Gran (auto) 0.00 Imm/Tot Granulo (auto) 0.3 Diff Slide Review Acceptable Review Sodium 140 Potassium 3.9 Chloride 105 Carbon Dioxide 30 Anion Gap 5 L BUN 13 Creatinine 0.7 Estimated Creat Clear 125.04 Estimated GFR 121 Glucose 105 Calcium 8.2 L Total Bilirubin 0.2 Direct Bilirubin 0.2 AST 53 H ALT 41 H Alkaline Phosphatase 51 C-Reactive Protein 1.6 H Total Protein 5.8 L Albumin 3.4
[2024-04-11] MEDS: guaiFENesin 600 MG TAB.ER.12H PO (23:18)
[2024-04-12] VITALS (7 sets, daily range): BP systolic 132; BP diastolic 83; PULSE 51; RESP 16; TEMP 36.8; O2SAT 84–98
[2024-04-12] MEDS: IPRAT-ALBUT 0.5-2.5 MG/3 ML NEB 1 NEB IH ×2 (04:25→09:32)
--- NOTE | 2024-04-12 07:12 | PC.NURSE ---
End of shift summary: Pt has been A&O, afebrile and VSS with exception to ongoing O2 needs. She was back and forth with needing 1-3L NC to maintain > 90% and being able to maintain on RA. Wondering about some undiagnosed MICHAELA since she drops when she?s fast asleep. Pt c/o tight cough so Mucinex BID was started along with her scheduled nebs. She?s independent in the room with a steady gait. No c/o dizziness or nausea. PIV in right AC is SL and C/D/I. PO Doxy BID. ?
[2024-04-12] MEDS: CIPROFLOX/DEXAMETH OTIC (nc) 4 DROP EAR-RIGHT (09:32)
--- NOTE | 2024-04-12 09:32 | PM.DS1 ---
DS: Providers Provider Date Seen: 04/12/24 Date of admission: 04/10/24 08:00 Primary care physician: Not a Local Provider Admitting Clinician: Ada Barnes MD Consults: 04/10/24 00:59 Consult to Respiratory Therapy [CONS] Routine Comment: Reason(s) for RT Consult:: Consult Attending Physician on discharge: Yudith Marx MD Date of Discharge: 04/12/24 DS: Diagnosis Discharge Diagnosis (1) Acute hypoxic respiratory failure: Status: Acute Problem details: - multifactorial due to influenza, pneumonia, bronchospasm - able to maintain saturations on RA while awake, intermittent hypoxia during sleep with rapid return to baseline, recommend outpatient sleep study (2) Influenza A: Status: Acute Problem details: -treated with Tamiflu (3) Pneumonia: Status: Acute Problem details: -influenza vs bacterial, mild neutropenia. treated with oral Doxycycline (will continue at d/c); received steroids during stay -appreciate RT support (4) Lump of breast, right: Status: Acute Problem details: -palpated on exam, noted on CT -Strong family history of breast cancer per patient report. Will need close outpatient follow-up with u/s and/or mammogram, patient aware of finding (5) Chronic neck pain: Status: Deleted Problem details: -Continued gabapentin and nightly HS Flexeril prn during stay -ANEURYSMAL BONE CYST listed in EPIC with several procedures for injections and surgery, pain management. not on opioids. DS: Summary Hospital Course Hospital Course: Greri was admitted to the hospital on 04/10/24 for acute hypoxic respiratory failure in the setting of Influenza A and CAP. Treated with supplemental oxygen, Tamiflu, and Doxycycline. She was able to maintain oxygen saturations on room air without supplemental oxygen on hospital day 2, requesting discharge home. Sending home with Doxycycline and Tamiflu to complete full courses of these medications. Noted during stay: - mild overnight hypoxia with rapid return to baseline while awake, recommend outpatient sleep study - incidental R breast lump with family h/o breast cancer: needs ultrasound and/or mammogram. Patient aware of finding and recommendation Patient medically appropriate for d/c home on 04/12/24. Status at Discharge Functional status at discharge: independent ambulation Overall status at discharge: patient is progressing back to baseline Time Spent with Patient Time attestation: Total time spent providing and/or coordinating discharge services: Time spent: Greater than 30 minutes Specific discharge activities: Medication reconciliation, patient education, appt discussion Exam Narrative: Exam Narrative: GEN: Alert and oriented, sitting comfortably in bed and appears nontoxic. On room air, speaking in full sentences without tachypnea HEENT: EOMIs bilaterally, no scleral icterus CV: RRR, No concerning murmurs R: Mild rhonchi, clears with cough, no wheezing Ext: wwp, no concerning edema Skin: No concerning skin lesions or rashes on exposed skin Neuro: Nonfocal Psych: Appropriate Const: Vital Signs, click to edit/add: Vital Signs - 24 hr 04/11/24 10:00 04/11/24 11:00 04/11/24 11:52 Temperature 98.5 F Pulse Rate [Pulse Oximeter] 55 L Respiratory Rate 16 18 16 Blood Pressure [Ri ght Arm] 106/68 Pulse Oximetry 95 90 95 Oxygen Delivery Me thod Room Air Room Air Room Air Oxygen Flow Rate 04/11/24 15:00 04/11/24 15:00 04/11/24 15:00 Temperature 98.3 F Pulse Rate [Pulse Oximeter] 56 L 56 L Respiratory Rate 18 18 Blood Pressure [Ri ght Arm] 128/90 H Pulse Oximetry 91 91 Oxygen Delivery Me thod Room Air Oxygen Flow Rate 04/11/24 15:00 04/11/24 19:15 04/11/24 19:25 Temperature Pulse Rate [Pulse Oximeter] Respiratory Rate 18 16 Blood Pressure [Ri ght Arm] Pulse Oximetry 91 85 L 90 Oxygen Delivery Me thod Room Air Room Air Nasal Cannula Oxygen Flow Rate 1.5 04/11/24 20:00 04/11/24 23:00 04/11/24 23:00 Temperature 98.5 F Pulse Rate [Pulse Oximeter] 57 L Respiratory Rate 18 16 Blood Pressure [Ri ght Arm] 120/70 Pulse Oximetry 93 87 L 87 L Oxygen Delivery Me thod Nasal Cannula Nasal Cannula Oxygen Flow Rate 1 1 04/11/24 23:00 04/11/24 23:00 04/11/24 23:20 Temperature 98.2 F Pulse Rate [Pulse Oximeter] 50 L 50 L Respiratory Rate 16 16 16 Blood Pressure [Ri ght Arm] 114/68 Pulse Oximetry 90 89 Oxygen Delivery Me thod Nasal Cannula Nasal Cannula Oxygen Flow Rate 3 2 04/12/24 04:30 04/12/24 04:31 04/12/24 06:01 Temperature 98.2 F Pulse Rate [Pulse Oximeter] 51 L Respiratory Rate 16 Blood Pressure [Ri ght Arm] 132/83 Pulse Oximetry 98 95 91 Oxygen Delivery Me thod Nasal Cannula Nasal Cannula Room Air Oxygen Flow Rate 3 1 04/12/24 06:45 04/12/24 07:00 04/12/24 07:39 Temperature Pulse Rate [Pulse Oximeter] Respiratory Rate Blood Pressure [Ri ght Arm] Pulse Oximetry 84 L 94 93 Oxygen Delivery Me thod Room Air Nasal Cannula Oxygen Flow Rate 2 04/12/24 07:40 Temperature Pulse Rate [Pulse Oximeter] Respiratory Rate 16 Blood Pressure [Ri ght Arm] Pulse Oximetry 93 Oxygen Delivery Me thod Nasal Cannula Oxygen Flow Rate 1 DS: Data Data Completed and Pending Completed studies during hospitalization: IMPRESSION: 1. Negative for acute pulmonary embolism. 2. Multifocal bilateral patchy ground-glass and consolidative opacities are likely infectious or inflammatory. 3. Mildly prominent mediastinal and bilateral hilar lymph nodes are likely reactive. 4. Asymmetric nodular soft tissue density in the right upper breast. Correlate with mammogram. Labs on day of discharge: Preliminary micro results at discharge 04/09/24 22:40 Blood Culture - Preliminary Blood NO GROWTH AFTER 48 HOURS Discharge Plan Discharge Disposition: Home w/ Parent or Adult Date of Admission: 04/10/24 08:00 Attending Provider on Discharge: Yudith Marx Primary Care Provider: Provider,Not a Local Anticipated Discharge Date/Time: 04/12/24 09:00 Discharge Medications: New oseltamivir 75 mg Capsule 75 mg PO BID Qty: 7 0RF doxycycline hyclate 100 mg Tablet 100 mg PO BID Qty: 11 0RF Continued cyclobenzaprine 10 mg tablet 20 mg PO HS PRN (Reason: neck pain) citalopram 40 mg tablet 40 mg PO DAILY gabapentin 300 mg capsule 300 mg PO TID ciprofloxacin-dexamethasone 0.3-0.1 % drops,suspension 4 drp Otic (ear-right) BID propranolol 60 mg capsule,extended release 24 hr 60 mg PO DAILY albuterol sulfate 90 mcg/actuation HFA aerosol inhaler 2 puff inhalation 6XD PRN (Reason: shortness of breath or wheezing) Qty: 6.7 0RF Discontinued prednisone 20 mg tablet 20 mg PO BID Qty: 10 0RF Discharge Orders: Discharge Order (Routine); Ordered 04/12/24 Ordered By: Yudith Marx Patient Education: Doxycycline (By mouth), Oseltamivir (By mouth) (Tamiflu), Influenza (DC), Pneumonia (DC) Additional Instructions: Finish a total of 10 doses (5 days) of Tamiflu and 14 doses (7 days) of Doxycycline (both of these medications sent to [facility]). Use your albuterol inhaler if you need it. See Dr. Lamar to establish care and discuss your breast lump and a sleep study to evaluate for sleep apnea. Activity Level: No strenuous activity Discharge Diet: Regular Follow Up Appointments: [facility] [Provider Group] () Dyan Lamar DO [Staff Physician] - 04/20/24 9:10 am ([facility] for recent stay for PNA and Influenza A; follow up breast lump and referral for sleep study ) Forms: [employer] Info Instructions
[2024-04-12] MEDS: CITALOPRAM HYDROBROMIDE 20 MG TABLET 40 MG PO (09:33)
[2024-04-12] MEDS: DOXYCYCLINE HYCLATE 100 MG PO (09:33)
[2024-04-12] MEDS: SODIUM CHLORIDE 0.9 % (FLUSH) 10 ML SYRINGE 5 ML IVF (09:33)
[2024-04-12] MEDS: OSELTAMIVIR PHOSPHATE 75 MG CAPSULE PO (09:33)
[2024-04-12] MEDS: GABAPENTIN 300 MG CAPSULE PO (09:33)
[2024-04-12] MEDS: guaiFENesin 600 MG TAB.ER.12H PO (09:33)
--- NOTE | 2024-04-12 11:03 | PC.NURSE ---
Discharge: Patient pleasant and cooperative. Up independently in room, vitals stable and WNL, afebrile. Not requiring o2 this morning, maintaining o2 sats>90% on RA. Denies pain or SOB. Continues to have cough, encouraged to use aerobika. Discussed discharge instructions, follow up and new medications. IV removed with catheter intact. Discharged @ 1100, family here to take her home.
== END 2024-04-12 11:00 | disposition home or self-care (01) | DRG 133 ==
LOC: ED 23:21 → MEDSURG 04-10 00:45
PROVIDERS: Family Medicine; Admitting Provider Family Medicine; Emergency Provider Emergency Medicine; Visit Provider Family Medicine
DX: J96.01 Acute respiratory failure with hypoxia (principal); J10.1 Influenza due to other identified influenza virus with other respiratory manifestations; J18.9 Pneumonia, unspecified organism; J98.01 Acute bronchospasm; N63.10 Unspecified lump in the right breast, unspecified quadrant; M54.2 Cervicalgia; G89.29 Other chronic pain
CPT/HCPCS: 36415; 71046; 71275; 80048; 80053; 80076; 82803; 83605; 84145; 84484; 84703; 85025; 85379; 86140; 87040; 94640; 94664; 94761; 99284; 99285; A9270; G0378; J0696; J2405; J2919; J7030; J7050; J7512; Q9967